=== PATIENT | female | born 1970 | race Caucasian/White ===

== ENCOUNTER → 2017-04-27 | Outpatient (CLI) | payer OTHER ==
--- NOTE | 2017-04-27 10:32 | WOMENS IMAGING REPORT ---
EXAM DESCRIPTION: BONE DENSITY HIP/SPINE COMPLETED DATE/TIME: 04/27/2017 9:02 am REASON FOR STUDY: M81.0 M81.0 AGE-RELATED OSTEOPOROSIS W/O CURRENT PATHOLOGICAL FRAC COMPARISON: 12/24/2012 TECHNIQUE: Dual-Energy X-ray Absorptiometry (DEXA) of the AP Spine and Hip. LIMITATIONS: None. FINDINGS: LUMBAR SPINE: The bone mineral density (BMD) measured from L1-L4 in the AP projection correlates with a T-score of -0.9, which is borderline osteopenic as defined by the World Health Organization. This represents a 10% decrease in bone density compared to 2013. HIP: The bone mineral density (BMD) measured in the left femoral neck at the hip correlates with a T-score of -0.6, which is still within normal limits as defined by the World Health Organization. However, this value represents a 14% decline in bone density compared to 2012 IMPRESSION: 1. LUMBAR SPINE: Borderline osteopenic 2. HIP: Normal COMMENT: The World Health Organization defines low BMD as follows: T-score: Normal: Greater than -1.0 Osteopenia: Between -1.0 and -2.5 Osteoporosis: Less than -2.5 without fractures Established osteoporosis: Less than -2.5 with fractures In general, you may wish to consider: Diagnosis Treatment Follow-up DEXA Normal BMD Prevention 2-3 years Osteopenia Prevention/Therapy 1-2 years Osteoporosis Therapy Yearly TECHNICAL DOCUMENTATION: JOB ID: [id number] [employer]- All Rights Reserved
== END ==
LOC: WI 09:11
PROVIDERS: ATTEND Family Medicine
DX: M81.0 Age-related osteoporosis without current pathological fracture (principal)
CPT/HCPCS: 77080

== ENCOUNTER → 2018-10-25 | Outpatient (CLI) | payer OTHER ==
--- NOTE | 2018-10-25 13:10 | RADIOLOGY REPORT (SQ) ---
EXAM DESCRIPTION: CHEST 2 VIEWS COMPLETED DATE/TIME: 10/25/2018 12:35 pm REASON FOR STUDY: SOB/COUGH COMPARISON: None. EXAM PARAMETERS: NUMBER OF VIEWS: two views TECHNIQUE: Digital Frontal and Lateral radiographic views of the chest acquired. RADIATION DOSE: NA LIMITATIONS: none FINDINGS: LUNGS AND PLEURA: Moderate right pleural effusion and associated airspace disease. MEDIASTINUM AND HILAR STRUCTURES: No masses or contour abnormalities. HEART AND VASCULAR STRUCTURES: Heart normal size. No evidence for failure. BONES: No acute findings. HARDWARE: Left mastectomy and axillary node dissection. OTHER: No other significant finding. IMPRESSION: Right lower lobe pneumonia. Follow-up to resolution is recommended. TECHNICAL DOCUMENTATION: JOB ID: [id number] [employer]- All Rights Reserved Reading location - IP/workstation name: [email or web address]
== END ==
LOC: RAD 12:12
PROVIDERS: ATTEND Hospitalist
DX: J18.9 Pneumonia, unspecified organism (principal); R06.02 Shortness of breath; R05 Cough
CPT/HCPCS: 71046

== ENCOUNTER 2018-12-23 08:00 | Day surgery (SDC) | payer OTHER ==
[~2018-12-23 08:00] MED LIST: CEFAZOLIN 1 GM/D5W RTU 1 GM/50 ML RTUPB IV ONE; CEFAZOLIN 1 GM/D5W RTU 1 GM/50 ML RTUPB IV PRN; DIAZEPAM 5 MG TABLET PO PRN; OXYCODONE-ACETAMINOPHEN 5-325 MG TABLET PO PRN
[2018-12-23] MEDS ORDERED: DIAZEPAM 5 MG TABLET ONE (08:46)
--- NOTE | 2018-12-23 09:19 | RADIOLOGY REPORT (SQ) ---
EXAM DESCRIPTION: CHEST SINGLE VIEW COMPLETED DATE/TIME: 12/23/2018 8:48 am REASON FOR STUDY: PREOP COMPARISON: 10/25/2018. EXAM PARAMETERS: NUMBER OF VIEWS: One view. TECHNIQUE: Single frontal radiographic view of the chest acquired. RADIATION DOSE: NA LIMITATIONS: None. FINDINGS: LUNGS AND PLEURA: Patchy basilar densities. Focal density in the medial right lower lobe. Moderate pleural effusions, right greater than left. MEDIASTINUM AND HILAR STRUCTURES: No masses. Contour normal. HEART AND VASCULAR STRUCTURES: Mild cardiomegaly. BONES: No acute findings. HARDWARE: Left mastectomy with surgical clips on the left. OTHER: No other significant finding. IMPRESSION: MODERATE BILATERAL PLEURAL EFFUSIONS, RIGHT GREATER THAN LEFT, WITH PATCHY BASILAR DENSI TIES. CANNOT EXCLUDE MASS OR INFILTRATE IN THE RIGHT LOWER LOBE. TECHNICAL DOCUMENTATION: JOB ID: [id number] 1941 [employer]- All Rights Reserved Reading location - IP/workstation name: [email or web address]
[2018-12-23 09:24] LABS: HEMOGLOBIN 13.3 g/dL (12.0-15.5); MEAN CORPUSCULAR HEMOGLOBIN 35.2 pg (27.0-33.4); MEAN CORPUSCULAR VOLUME 101 fl (80-97); PLATELET COUNT 370 10^3/uL (150-450); RED BLOOD COUNT 3.78 10^6/uL (3.72-5.28); RED CELL DISTRIBUTION WIDTH 19.2 % (11.5-14.0)
[2018-12-23] MEDS ORDERED: MIDAZOLAM 2 MG/2 ML INJ ONE (09:32)
[2018-12-23] MEDS ORDERED: LIDOCAINE 0.5% INJ-PF (5 MG/ML) 50 ML SDV ONE (09:32)
[2018-12-23] MEDS ORDERED: BACITRACIN INJ 50,000 UNIT VIAL ONE (09:33)
[2018-12-23] MEDS ORDERED: FENTANYL CITRATE INJ/PF 100 MCG/2 ML AMPUL ONE (09:33)
[2018-12-23 09:41] LABS: ANION GAP 9 (5-19); BLOOD UREA NITROGEN 8 mg/dL (7-20); CALCIUM 9.4 mg/dL (8.4-10.2); CARBON DIOXIDE 26 mmol/L (22-30); CHLORIDE 105 mmol/L (98-107); GLUCOSE 104 mg/dL (75-110); POTASSIUM 4.3 mmol/L (3.6-5.0); SODIUM 140.2 mmol/L (137-145)
--- NOTE | 2018-12-23 11:21 | Discharge Summary ---
Discharge Summary (SDC) - Discharge Final Diagnosis: #1 breast cancer. Date of Surgery: 12/23/18 Discharge Date: 12/23/18 Condition: Fair Forms: Sedation D/C Instructions, Discharge POC-Surgical Service Treatment or Instructions: Discharge home [after recovery per ASU criteria]. Diet ,as tolerated, when fully awake advance as tolerated. Activities within moderation encouraged. Follow up in my office by appointment in about [1 week]. Call for appointment. Leave wounds [covered], [keep clean and dry, until office visit in 1 week]. Hold of on school/work [until evaluation in office]. Meds per med rec. May shower [in 48 hrs], [try to keep operated area as dry as possible]. Referrals: SHARONDA CARVAJAL JR, MD [Primary Care Provider] - GARCIA EVANS MD [ACTIVE STAFF] - Discharge Diet: As Tolerated Respiratory Treatments at Home: Deep Breathing/Coughing Discharge Activity: Activity As Tolerated
--- NOTE | 2018-12-23 11:23 | Operative Report ---
Operative Report DATE OF SURGERY: 12/23/18 PREOPERATIVE DIAGNOSIS: #1 breast cancer. POSTOPERATIVE DIAGNOSIS: #1 breast cancer. OPERATION: 1. Ultrasound evaluation of the right internal jugular vein. 2. Insertion of Port-A-Cath via real-time access in the right internal jugular vein. 3. Angiogram and interpretation. SURGEON: GARCIA JAMA [employer] WORKER: None. ANESTHESIA: Moderate Sedation TISSUE REMOVED OR ALTERED: Not applicable. COMPLICATIONS: None. ESTIMATED BLOOD LOSS: 5 mL. INTRAOPERATIVE FINDINGS: Satisfactory right internal jugular vein estimated to be 1.2 cm in diameter. Satisfactory support for single lumen Port-A-Cath. Easy egress of blood and ingress of heparinized solution. Angiogram demonstrates smooth flow of contrast through the distal superior vena cava and right atrium. PROCEDURE: After obtaining informed consent, the patient was taken to the [facility] and positioned supine. The [right] neck and chest were prepared with chlorhexidine and draped out with sterile linen. After the " universal timeout", in which it was verified that the patient continued to receive antibiotic, the procedure commenced. A steriley sheathed ultrasound probe was used to evaluate the [right] internal jugular vein. Local anesthesia was infiltrated adjacent to the probe. Access into the [right] internal jugular vein was obtained using a micropuncture needle, followed by micropuncture wire and then a micropuncture catheter. This was followed by introduction of a 0.035 guidewire the tip of which was placed down into the inferior vena cava . The port sites was marked , locally anesthetized and incision made. Dissection now proceeded to the deep subcutaneous subcutaneous tissues so that a pocket for the port was made. Meticulous hemostasis was secured and the catheter was tunneled between the 2 incisions. Proximally, the catheter was now positioned using a peel-away sheath. Distally the catheter was tailored to an appropriate length and then mated to the port using the contained fixating device. The port was now placed in the pocket and the catheter optimally positioned. The port was accessed with a Anne needle and an angiogram done under digital subtraction. The findings as dictated. With adequate and satisfactory positioning, the lumen of the chamber were irrigated with heparinized solution. The wounds were now closed using interrupted 3-0 PDS to the subcutaneous tissues and a continuous subcuticular suture of 4-0 Monocryl to the skin. These are reinforced with Steri-Strips over benzoin and then dressings applied. Time: 0.1 minute. Dose: 6.39 m Gy Contrast: 5 Mls. Isovue 300. Copies of the dictated operative report for Dr. Garcia Garcia MD.
[2018-12-23 12:35] VITALS: BP 133/72
--- NOTE | 2018-12-23 13:03 | RADIOLOGY REPORT (SQ) ---
EXAM DESCRIPTION: PORTACATH INSERTION; GUIDANCE FLUOROSCOPIC COMPLETED DATE/TIME: 12/23/2018 11:02 am REASON FOR STUDY: C50.412 LT BREAST CA C50.412 MALIG NEOPLASM OF UPPER-OUTER QUADRANT OF LEFT FEMAL COMPARISON: None. FLUOROSCOPY TIME: 0.1 minutes 21 digital radiographic images saved to PACS. TECHNIQUE: Intra-operative images acquired during surgical procedure to evaluate progress. NUMBER OF IMAGES: 21 digital radiographic images saved to pac's LIMITATIONS: None. FINDINGS: Intra procedural imaging and fluoro during placement of a right-sided permanent central li ne with the tip in the superior vena cava. Please see the operative report for further details IMPRESSION: Intra procedural imaging and fluoro COMMENT: Quality ID [id number]: Final reports for procedures using fluoroscopy that document radiation exp osure indices, or exposure time and number of fluorographic images (if radiation exposure indices are not available) Please consult full operative report of the attending physician for description of the procedure. TECHNICAL DOCUMENTATION: JOB ID: [id number] [employer]- All Rights Reserved Reading location - IP/workstation name: [email or web address]
--- NOTE | 2018-12-23 13:03 | RADIOLOGY REPORT (SQ) ---
EXAM DESCRIPTION: PORTACATH INSERTION; GUIDANCE FLUOROSCOPIC COMPLETED DATE/TIME: 12/23/2018 11:02 am REASON FOR STUDY: C50.412 LT BREAST CA C50.412 MALIG NEOPLASM OF UPPER-OUTER QUADRANT OF LEFT FEMAL COMPARISON: None. FLUOROSCOPY TIME: 0.1 minutes 21 digital radiographic images saved to PACS. TECHNIQUE: Intra-operative images acquired during surgical procedure to evaluate progress. NUMBER OF IMAGES: 21 digital radiographic images saved to pac's LIMITATIONS: None. FINDINGS: Intra procedural imaging and fluoro during placement of a right-sided permanent central li ne with the tip in the superior vena cava. Please see the operative report for further details IMPRESSION: Intra procedural imaging and fluoro COMMENT: Quality ID [id number]: Final reports for procedures using fluoroscopy that document radiation exp osure indices, or exposure time and number of fluorographic images (if radiation exposure indices are not available) Please consult full operative report of the attending physician for description of the procedure. TECHNICAL DOCUMENTATION: JOB ID: [id number] [employer]- All Rights Reserved Reading location - IP/workstation name: [email or web address]
== END 2018-12-23 12:20 | disposition home or self-care (01) ==
LOC: CCL 08:00
PROVIDERS: ATTEND Surgery
DX: C50.412 Malignant neoplasm of upper-outer quadrant of left female breast (principal); E03.9 Hypothyroidism, unspecified; Z85.3 Personal history of malignant neoplasm of breast; C79.9 Secondary malignant neoplasm of unspecified site; Z79.51 Long term (current) use of inhaled steroids; Z87.891 Personal history of nicotine dependence; Z79.899 Other long term (current) drug therapy; Z01.818 Encounter for other preprocedural examination
CPT/HCPCS: 36415; 85027; 80048; 36561; 76937; 77001; 71045; C1752; C1788; J2250; J3490 ×2; J0690; J3010; J1644

== ENCOUNTER 2019-01-05 15:48 | Inpatient (IN) | payer OTHER ==
[2019-01-05 16:45] LABS: ABSOLUTE BASOPHILS # (AUTO) 0.1 10^3/uL (0.0-0.2); ABSOLUTE EOSINOPHILS # (AUTO) 0.3 10^3/uL (0.0-0.6); ABSOLUTE NEUT (AUTO) 4.1 10^3/uL (1.7-8.2); EOSINOPHILS % (AUTO) 5.7 % (0-6); HEMATOCRIT 36.9 % (36.0-47.0); HEMOGLOBIN 12.6 g/dL (12.0-15.5); LYMPHOCYTES % (AUTO) 18.3 % (13-45); MEAN CORPUSCULAR HEMOGLOBIN 34.6 pg (27.0-33.4); MEAN CORPUSCULAR HGB CONC 34.2 g/dL (32.0-36.0); MEAN CORPUSCULAR VOLUME 101 fl (80-97); MONOCYTES % (AUTO) 0.8 % (3-13); PLATELET COUNT 418 10^3/uL (150-450); RED BLOOD COUNT 3.64 10^6/uL (3.72-5.28); RED CELL DISTRIBUTION WIDTH 16.6 % (11.5-14.0); SEGMENTED NEUTROPHILS % (AUTO) 74.2 % (42-78); TOTAL CELLS COUNTED % (AUTO) 100 %; WHITE BLOOD COUNT 5.5 10^3/uL (4.0-10.5)
[2019-01-05 16:52] LABS: INTERNATIONAL RATION (INR) 1.07; PROTHROMBIN TIME 14.4 SEC (11.4-15.4)
[2019-01-05 16:53] LABS: PARTIAL THROMBOPLASTIN TIME 44.3 SEC (23.5-35.8)
[2019-01-05 16:55] LABS: ALANINE AMINOTRANSFERASE 28 U/L (9-52); ALBUMIN 3.9 g/dL (3.5-5.0); ALKALINE PHOSPHATASE 101 U/L (38-126); ANION GAP 10 (5-19); ASPARTATE AMINO TRANSFERASE 46 U/L (14-36); BILIRUBIN,DIRECT 0.3 mg/dL (0.0-0.4); BILIRUBIN,TOTAL 0.4 mg/dL (0.2-1.3); BLOOD UREA NITROGEN 4 mg/dL (7-20); CARBON DIOXIDE 28 mmol/L (22-30); CHLORIDE 100 mmol/L (98-107); GLUCOSE 101 mg/dL (75-110); POTASSIUM 3.5 mmol/L (3.6-5.0); SODIUM 137.7 mmol/L (137-145)
--- NOTE | 2019-01-05 18:15 | RADIOLOGY REPORT (SQ) ---
EXAM DESCRIPTION: CHEST 2 VIEWS COMPLETED DATE/TIME: 01/05/2019 5:21 pm REASON FOR STUDY: Hymopthysis COMPARISON: 10/25/2018. 12/23/2018. EXAM PARAMETERS: NUMBER OF VIEWS: two views TECHNIQUE: Digital Frontal and Lateral radiographic views of the chest acquired. RADIATION DOSE: NA LIMITATIONS: none FINDINGS: LUNGS AND PLEURA: There is again evidence of a masslike infiltrate right cardiophrenic ang le with right pleural effusion. Persistent left pleural effusion and left basilar infiltrate. . MEDIASTINUM AND HILAR STRUCTURES: No masses or contour abnormalities. HEART AND VASCULAR STRUCTURES: The heart remains unchanged in size. The pulmonary vasculature is nor mal. BONES: No acute findings. HARDWARE: Surgical clips left axilla and left chest wall. . OTHER: Interval placement of right trans venous Port-A-Cath with tip at distal SVC. Changes compatib le with left mastectomy. IMPRESSION: Persistent masslike infiltrate right cardiophrenic angle. Left basilar infiltrate. Arsen ateral pleural effusions right greater than left. Consider CT of the chest with contrast as further evaluation if indicated. COMMENT: The findings were discussed with the ER physician taking care the patient. TECHNICAL DOCUMENTATION: JOB ID: [id number] [employer]- All Rights Reserved Reading location - IP/workstation name: [email or web address]
[2019-01-05] MEDS ORDERED: IPRATROPIUM/ALBUTEROL 0.5-2.5 MG/3 ML AMPUL NEB ONE (20:02)
--- NOTE | 2019-01-05 20:03 | RADIOLOGY REPORT (SQ) ---
EXAM DESCRIPTION: CT CHEST WITH IV CONTRAST COMPLETED DATE/TME: 01/05/2019 18:17 CLINICAL HISTORY: 48 years, Female, Hemoptysis, Lung mass This exam was performed according to our departmental dose-optimization program which includes automated exposure control, adjustment of the mA and/or kVp according to patient size and/or use of iterative reconstruction technique where applicable. FINDINGS: Aorta is mildly calcified without aneurysm. Pulmonary arteries are well opacified. Mild layering bilateral pleural effusions. Right lower lobe consolidation is noted. Multiple right lung pleural-based nodules. These findings are suspicious for malignancy. Right chest port is noted. IMPRESSION: Findings suspicious for malignancy. Mild layering bilateral pleural effusions. Correlate with prior imaging studies.
[2019-01-05] MEDS ORDERED: VANCOMYCIN HCL INJ 1000 MG VIAL IV ONE (20:41)
[2019-01-05] MEDS ORDERED: CEFEPIME 2 GM/D5W RTU 2 GM/50 ML RTUPB IV ONE (20:41)
[2019-01-05 21:19] LABS: APPEARANCE,URINE CLEAR; BILIRUBIN,URINE NEGATIVE (NEGATIVE); COLOR,URINE STRAW; GLUCOSE, URINE NEGATIVE (NEGATIVE); KETONES,URINE NEGATIVE (NEGATIVE); LEUKOCYTE ESTERASE,URINE NEGATIVE (NEGATIVE); NITRITE,URINE NEGATIVE (NEGATIVE); PROTEIN,URINE NEGATIVE (NEGATIVE); URINE SPECIFIC GRAVITY 1.035; UROBILINOGEN,URINE NEGATIVE mg/dL (<2.0)
--- NOTE | 2019-01-05 21:25 | ER Document Report ---
ED General - General Chief Complaint: Vomiting Stated Complaint: SPITTING UP BLOOD Primary Care Provider: SHARONDA CARVAJAL JR, MD [Primary Care Provider] - Follow up as needed Information source: Patient, Relative TRAVEL OUTSIDE OF THE [place] IN LAST 30 DAYS: No - HPI Onset: Other - 3-4 days. Onset/Duration: Sudden Quality of pain: No pain Severity: None Pain Level: Denies Associated symptoms: None, Productive cough - Hemoptysis Exacerbated by: Denies Relieved by: Denies Similar symptoms previously: No Recently seen / treated by doctor: No - Related Data Allergies/Adverse Reactions: No Known Allergies Allergy (Verified 12/23/18 08:12) Past Medical History - Social History Smoking Status: Current Every Day Smoker Chew tobacco use (# tins/day): No Frequency of alcohol use: None Drug Abuse: None Family History: Reviewed & Not Pertinent Patient has suicidal ideation: No Patient has homicidal ideation: No - Past Medical History Cardiac Medical History: Denies: Hx Coronary Artery Disease, Hx Heart Attack, Hx Hypertension Pulmonary Medical History: Denies: Hx Asthma, Hx Bronchitis - X1, Hx COPD, Hx Pneumonia Neurological Medical History: Denies: Hx Cerebrovascular Accident, Hx Seizures Renal/ Medical History: Denies: Hx Peritoneal Dialysis Musculoskeletal Medical History: Denies Hx Arthritis Past Surgical History: Reports: Hx Breast Surgery - left mastectomy, Hx Section - Immunizations Hx Diphtheria, Pertussis, Tetanus Vaccination: No Review of Systems - Review of Systems Constitutional: No symptoms reported EENT: No symptoms reported Cardiovascular: No symptoms reported Respiratory: Cough, Hemoptysis, Short of breath Gastrointestinal: No symptoms reported Genitourinary: No symptoms reported Female Genitourinary: No symptoms reported Musculoskeletal: No symptoms reported Skin: No symptoms reported Hematologic/Lymphatic: No symptoms reported Neurological/Psychological: No symptoms reported -: Yes All other systems reviewed and negative Physical Exam - Vital signs Vitals: Temp Pulse Resp BP Pulse Ox 98.6 F 76 18 157/67 H 92 01/05/19 16:04 01/05/19 16:04 01/05/19 16:04 01/05/19 16:04 01/05/19 16:04 Interpretation: Normal - General General appearance: Appears well, Alert - HEENT Head: Normocephalic, Atraumatic Eyes: Normal Pupils: PERRL - Respiratory Respiratory status: No respiratory distress Chest status: Nontender Breath sounds: Normal Chest palpation: Normal - Cardiovascular Rhythm: Regular Heart sounds: Normal auscultation Murmur: No - Abdominal Inspection: Normal Distension: No distension Bowel sounds: Normal Tenderness: Nontender Organomegaly: No organomegaly - Back Back: Normal, Nontender - Extremities General upper extremity: Normal inspection, Nontender, Normal color, Normal ROM, Normal temperature General lower extremity: Normal inspection, Nontender, Normal color, Normal ROM, Normal temperature, Normal weight bearing. No: Ladarius's sign - Neurological Neuro grossly intact: Yes Cognition: Normal Orientation: AAOx4 Tripp Coma Scale Eye Opening: Spontaneous Camino Coma Scale Verbal: Oriented Tripp Coma Scale Motor: Obeys Commands Tripp Coma Scale Total: 15 Speech: Normal Motor strength normal: LUE, RUE, LLE, RLE Sensory: Normal - Psychological Associated symptoms: Normal affect, Normal mood - Skin Skin Temperature: Warm Skin Moisture: Dry Skin Color: Normal Course - Vital Signs Vital signs: Temp Pulse Resp BP Pulse Ox 98.6 F 76 17 157/67 H 98 01/05/19 16:04 01/05/19 16:04 01/05/19 20:00 01/05/19 16:04 01/05/19 20:00 - Laboratory Result Diagrams: 01/05/19 16:20 01/05/19 16:20 Laboratory results interpreted by me: 01/05/19 01/05/19 01/05/19 16:20 16:20 16:20 RBC 3.64 L MCV 101 H MCH 34.6 H RDW 16.6 H Monocytes % 0.8 L Absolute Monocytes 0.0 L APTT 44.3 H Potassium 3.5 L BUN 4 L AST 46 H - Diagnostic Test Radiology reviewed: Reports reviewed - Consults Dr Mcginnis Time consulted: 20:50 Consulted provider: will see as inpatient - Transfer of Care Notes: 01/05/19 21:23 Patient will be admitted by the hospitalist Dr. Shamir Dacosta for further management. Discharge - Discharge Clinical Impression: Hemoptysis Right lower lobe pneumonia Qualifiers: Pneumonia type: due to unspecified organism Qualified Code(s): J18.1 - Lobar pneumonia, unspecified organism Breast cancer Qualifiers: Breast location: unspecified site of breast Estrogen receptor status: unspecified Patient sex: female Laterality: unspecified laterality Qualified Code(s): C50.919 - Malignant neoplasm of unspecified site of unspecified female breast Condition: Stable Disposition: ADMITTED INPATIENT Admitting Provider: Hospitalist Unit Admitted: Telemetry Referrals: SHARONDA CARVAJAL JR, MD [Primary Care Provider] - Follow up as needed
[2019-01-05] MEDS ORDERED: KETOROLAC TROMETHAMINE INJ/PF 30 MG/1 ML SDV IV PRN (21:34)
[2019-01-05] MEDS ORDERED: VANCOMYCIN HCL INJ 1000 MG VIAL IV PRN (21:57)
[2019-01-05] MEDS ORDERED: VANCOMYCIN HCL 0 MG in DEXTROSE 5%-WATER 250 ML IV NR (22:00)
[2019-01-05] MEDS ORDERED: CEFEPIME 2 GM/D5W RTU 2 GM/50 ML RTUPB IV SCH (22:00)
[2019-01-05] MEDS ORDERED: VANCOMYCIN HCL 750 MG in DEXTROSE 5%-WATER 250 ML IV ONE (23:00)
[2019-01-06] MEDS: OXYCODONE HCL SR 40 MG TABLET PO SCH ×3 (00:02→21:43)
[2019-01-06] MEDS: IPRATROPIUM/ALBUTEROL 0.5-2.5 MG/3 ML AMPUL NEB SCH ×4 (00:12→23:29)
[2019-01-06] MEDS: OXYCODONE HCL IR 5 MG TABLET PO SCH ×5 (01:24→14:29)
[2019-01-06] MEDS: CHLORPHENIRAMINE MALEATE 4 MG TABLET PO SCH ×4 (01:24→10:24)
[2019-01-06] MEDS: HEPARIN SOD (PORCINE) 5,000 UNIT/ML 1 ML SYRINGE SUBCUT SCH ×4 (01:24→21:43)
[2019-01-06] MEDS: NORMAL SALINE 1000 ML 1,000 ML IV PRN ×2 (01:49→07:53)
[2019-01-06] MEDS ORDERED: FLUTICASONE NASAL SPRAY 50 MCG/SPRY 120 SPRAY/16 GM ONE (01:57)
[2019-01-06] MEDS ORDERED: PROMETHAZINE HCL 25 MG TABLET PO SCH (02:00)
[2019-01-06] MEDS: FLUTICASONE NASAL SPRAY 50 MCG/SPRY 120 SPRAY/16 GM NASL SCH ×3 (02:00→21:43)
[2019-01-06] MEDS ORDERED: PROMETHAZINE HCL 25 MG TABLET PO PRN (02:30)
--- NOTE | 2019-01-06 05:09 | PDOC H&P ---
History of Present Illness Admission Date/PCP: 01/05/19 21:30 SHARONDA CARVAJAL JR, MD Patient complains of: Rhinorrhea and shortness of breath History of Present Illness: VIJAYA HUTTON is a 48 year old female with a past medical history of recurrent stage IV breast cancer with widespread metastasis to lung, chronic left maxillary sinusitis, COPD and tobacco dependence. She presents with 72 hours of worsening rhinorrhea, postnasal drip, shortness of breath and productive cough with purulent material and blood. Quantifying the blood to be approximately a tablespoon occurring approximately a dozen times over the last 12 hours. In the emergency room she has hypoxia, tachypnea, leukocytosis and a chest CT showing bilateral infiltrate worse on the right, with layering pleural effusion. Patient denies recent antibiotic use and complains of generalized pain and fatigue. Patient verifies her CODE STATUS to be full code Past Medical History Cardiac Medical History: Denies: Coronary Artery Disease, Myocardial Infarction, Hypertension Pulmonary Medical History: Reports: Bronchitis - X1, Chronic Obstructive Pulmonary Disease (COPD), Pneumonia Denies: Asthma EENT Medical History: Reports: Other - Left maxillary sinusitis Neurological Medical History: Reports: None Denies: Seizures Endocrine Medical History: Reports: None Renal/ Medical History: Reports: None Malignancy Medical History: Reports: Bone Cancer, Breast Cancer, Lung Cancer GI Medical History: Reports: None Musculoskeltal Medical History: Denies: Arthritis Skin Medical History: Reports: None Psychiatric Medical History: Reports: Tobacco Dependency Traumatic Medical History: Reports: None Hematology: Denies: Anemia Infectious Medical History: Reports: None Past Surgical History Past Surgical History: Reports: Section, Mastectomy Social History Information Source: Patient, [facility] Records Lives with: Family Smoking Status: Current Every Day Smoker Cigarettes Packs Per Day: 1 Frequency of Alcohol Use: None Drugs: None - Advance Directive Resuscitation Status: Full Code Family History Family History: COPD Parental Family History Reviewed: Yes Children Family History Reviewed: Yes Sibling(s) Family History Reviewed.: Yes Medication/Allergy Home Medications: Ibuprofen [Motrin 600 mg Tablet] 600 mg PO PRN PRN 12/20/18 Oxycodone HCl [Oxycodone HCl 10 MG Tablet] 10 mg PO Q4H 12/20/18 Oxycodone HCl [Oxycontin Sr 40 mg Tablet] 40 mg PO Q12 12/20/18 Thyroid (Pork) [[place] Thyroid 60 mg Tablet] 1 gr PO DAILY 12/20/18 Allergies/Adverse Reactions: No Known Allergies Allergy (Verified 12/23/18 08:12) Review of Systems Constitutional: PRESENT: as per HPI, anorexia, fatigue, night sweats, weakness, weight loss Eyes: ABSENT: visual disturbances Ears: ABSENT: hearing changes Nose, Mouth, and Throat: PRESENT: other - Left maxillary with rhinorrhea Cardiovascular: ABSENT: chest pain, dyspnea on exertion, edema, orthropnea, pal pitations Respiratory: PRESENT: as per HPI, cough, dyspnea, hemoptysis, sputum Gastrointestinal: ABSENT: abdominal pain, constipation, diarrhea, hematemesis, hematochezia, nausea, vomiting Genitourinary: ABSENT: dysuria, hematuria Musculoskeletal: ABSENT: joint swelling Integumentary: ABSENT: rash, wounds Neurological: ABSENT: abnormal gait, abnormal speech, confusion, dizziness, focal weakness, syncope Psychiatric: PRESENT: anxiety. ABSENT: depression, homidical ideation, suicidal ideation Endocrine: ABSENT: cold intolerance, heat intolerance, polydipsia, polyuria Hematologic/Lymphatic: ABSENT: easy bleeding, easy bruising Physical Exam Vital Signs: Temp Pulse Resp BP Pulse Ox 98.2 F 86 18 151/72 H 97 01/06/19 03:41 01/06/19 03:41 01/06/19 03:41 01/06/19 03:41 01/06/19 03:41 Intake & Output 01/04/19 01/05/19 01/06/19 10:59 11:59 11:59 Intake Total 50 Balance 50 Weight 49.2 kg General appearance: PRESENT: cooperative, mild distress, thin, other - Chronically ill-appearing with temporal wasting Head exam: PRESENT: atraumatic, normocephalic Eye exam: PRESENT: conjunctiva pink, EOMI, PERRLA. ABSENT: scleral icterus Ear exam: PRESENT: normal external ear exam Mouth exam: PRESENT: moist, tongue midline Neck exam: ABSENT: carotid bruit, JVD, lymphadenopathy, thyromegaly Respiratory exam: PRESENT: accessory muscle use, crackles, decreased breath sounds, prolonged expiratory phas, retraction, rhonchi, tachypnea. ABSENT: symmetrical Cardiovascular exam: PRESENT: RRR. ABSENT: diastolic murmur, rubs, systolic murmur Pulses: PRESENT: normal dorsalis pedis pul Vascular exam: PRESENT: normal capillary refill GI/Abdominal exam: PRESENT: normal bowel sounds, soft. ABSENT: distended, guarding, mass, organolmegaly, rebound, tenderness Rectal exam: PRESENT: deferred Extremities exam: PRESENT: full ROM. ABSENT: calf tenderness, clubbing, pedal edema Neurological exam: PRESENT: alert, awake, oriented to person, oriented to place, oriented to time, oriented to situation, CN II-XII grossly intact. ABSENT: motor sensory deficit Psychiatric exam: PRESENT: appropriate affect, normal mood. ABSENT: homicidal ideation, suicidal ideation Skin exam: PRESENT: dry, intact, warm. ABSENT: cyanosis, rash Results Laboratory Results: 01/05/19 16:20 01/05/19 16:20 01/05/19 01/05/19 01/05/19 16:20 16:20 16:20 WBC 5.5 RBC 3.64 L Hgb 12.6 Hct 36.9 MCV 101 H MCH 34.6 H MCHC 34.2 RDW 16.6 H Plt Count 418 Seg Neutrophils % 74.2 Lymphocytes % 18.3 Monocytes % 0.8 L Eosinophils % 5.7 Basophils % 1.0 Absolute Neutrophils 4.1 Absolute Lymphocytes 1.0 Absolute Monocytes 0.0 L Absolute Eosinophils 0.3 Absolute Basophils 0.1 Sodium 137.7 Potassium 3.5 L Chloride 100 Carbon Dioxide 28 Anion Gap 10 BUN 4 L Creatinine 0.55 Est GFR ( Amer) > 60 Est GFR (Non-Af Amer) > 60 Glucose 101 Calcium 9.0 Magnesium 2.0 Total Bilirubin 0.4 AST 46 H ALT 28 Alkaline Phosphatase 101 Total Protein 7.0 Albumin 3.9 Urine Color Urine Appearance Urine pH Ur Specific [place] Urine Protein Urine Glucose (UA) Urine Ketones Urine Blood Urine Nitrite Ur Leukocyte Esterase Urine WBC (Auto) 01/05/19 20:10 WBC RBC Hgb Hct MCV MCH MCHC RDW Plt Count Seg Neutrophils % Lymphocytes % Monocytes % Eosinophils % Basophils % Absolute Neutrophils Absolute Lymphocytes Absolute Monocytes Absolute Eosinophils Absolute Basophils Sodium Potassium Chloride Carbon Dioxide Anion Gap BUN Creatinine Est GFR ( Amer) Est GFR (Non-Af Amer) Glucose Calcium Magnesium Total Bilirubin AST ALT Alkaline Phosphatase Total Protein Albumin Urine Color STRAW Urine Appearance CLEAR Urine pH 7.0 Ur Specific [place] 1.035 Urine Protein NEGATIVE Urine Glucose (UA) NEGATIVE Urine Ketones NEGATIVE Urine Blood NEGATIVE Urine Nitrite NEGATIVE Ur Leukocyte Esterase NEGATIVE Urine WBC (Auto) 1 Impressions: Chest X-Ray 01/05/19 16:37 IMPRESSION: Persistent masslike infiltrate right cardiophrenic angle. Left basilar infiltrate. Bilateral pleural effusions right greater than left. Consider CT of the chest with contrast as further evaluation if indicated. Chest CT 01/05/19 18:17 IMPRESSION: Findings suspicious for malignancy. Mild layering bilateral pleural effusions. Correlate with prior imaging studies. Assessment & Plan - Diagnosis (1) Right lower lobe pneumonia Qualifiers: Pneumonia type: due to unspecified organism Qualified Code(s): J18.1 - Lobar pneumonia, unspecified organism Is this a current diagnosis for this admission?: Yes Plan: Complicated by breast cancer with metastases to lung and pleural effusions. Pneumonia care set, incentive spirometry, supplemental oxygen incentive spirometry, empiric antibiotics. Follow-up CBC, blood and sputum culture. (2) Maxillary sinusitis, acute Is this a current diagnosis for this admission?: Yes Plan: Flonase, chlorpheniramine, empiric antibiotics. Follow-up CBC and consider ENT if felt to be source of bleeding. (3) Breast cancer Qualifiers: Breast location: unspecified site of breast Estrogen receptor status: unspecified Patient sex: female Laterality: unspecified laterality Qualified Code(s): C50.919 - Malignant neoplasm of unspecified site of unspecified female breast Is this a current diagnosis for this admission?: Yes Plan: Oncology consult (4) Hemoptysis Is this a current diagnosis for this admission?: Yes Plan: Pulmonology consult, consider ENT. - Time Time Spent: 50 to 70 Minutes - Inpatient Certification Medical Necessity: Need Close Monitoring Due to Risk of Patient Decompensation
[2019-01-06 06:22] LABS: ABSOLUTE BASOPHILS # (AUTO) 0.1 10^3/uL (0.0-0.2); ABSOLUTE EOSINOPHILS # (AUTO) 0.3 10^3/uL (0.0-0.6); ABSOLUTE LYMPHOCYTES (AUTO) 0.9 10^3/uL (0.5-4.7); ABSOLUTE NEUT (AUTO) 3.1 10^3/uL (1.7-8.2); BASOPHILS % (AUTO) 1.3 % (0-2); EOSINOPHILS % (AUTO) 7.3 % (0-6); HEMATOCRIT 34.5 % (36.0-47.0); HEMOGLOBIN 11.8 g/dL (12.0-15.5); LYMPHOCYTES % (AUTO) 20.2 % (13-45); MEAN CORPUSCULAR HEMOGLOBIN 34.7 pg (27.0-33.4); MEAN CORPUSCULAR HGB CONC 34.4 g/dL (32.0-36.0); MEAN CORPUSCULAR VOLUME 101 fl (80-97); MONOCYTES % (AUTO) 0.9 % (3-13); PLATELET COUNT 367 10^3/uL (150-450); RED BLOOD COUNT 3.41 10^6/uL (3.72-5.28); RED CELL DISTRIBUTION WIDTH 17.2 % (11.5-14.0); SEGMENTED NEUTROPHILS % (AUTO) 70.3 % (42-78); TOTAL CELLS COUNTED % (AUTO) 100 %; WHITE BLOOD COUNT 4.3 10^3/uL (4.0-10.5)
[2019-01-06] MEDS: IPRATROPIUM/ALBUTEROL 0.5-2.5 MG/3 ML AMPUL NEB PRN ×2 (06:22→14:33)
[2019-01-06 06:34] LABS: ANION GAP 8 (5-19); BLOOD UREA NITROGEN 3 mg/dL (7-20); CALCIUM 8.8 mg/dL (8.4-10.2); CARBON DIOXIDE 26 mmol/L (22-30); CHLORIDE 104 mmol/L (98-107); GLUCOSE 74 mg/dL (75-110); POTASSIUM 3.8 mmol/L (3.6-5.0)
--- NOTE | 2019-01-06 07:04 | EKG REPORT ---
SEVERITY:- ABNORMAL ECG - SINUS RHYTHM LEFT BUNDLE BRANCH BLOCK : Confirmed by: Richard Anthony MD 06-Jan-2019 07:03:54
[2019-01-06] MEDS ORDERED: THYROID (PORK) 60 MG TABLET PO SCH (10:00)
--- NOTE | 2019-01-06 10:04 | PDOC CONSULTATION ---
Consultation Consult Date: 01/06/19 Consult reason:: Hematology/Oncology consultation was requested for patient with Stage IV breast cancer who was admitted for hemoptysis. History of Present Illness Admission Date/PCP: 01/05/19 21:30 SHARONDA CARVAJAL JR, MD History of Present Illness: VIJAYA HUTTON is a 48 year old female who was originally diagnosed with breast cancer in 2009, was treated (unknown location) and states that she was in remission until Aug 2018 when she developed a cough and thought she had pneumonia. She was treated in [place] and found to have a pleural effusion and pneumonia. 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 [id number] consistent with breast primary. She was starte don Xeloda oral chemotherapy, but was found to have progression on this medication, so was changed to Gemzar/Carboplatin. She received Cycle #1Day#1 of this chemo on 01/01/2019 and is due for Day 8 of cycle 1 on 01/08/2019. Today, she states that she started having sudden hemoptysis 2 days ago, just after the chemotherapy. She has never had anything like this before. She remains quite concerned today. No other issues voiced. She states that it was only in her sputum, but seemed like a moderate amount. Past Medical History Cardiac Medical History: Denies: Coronary Artery Disease, Myocardial Infarction, Hypertension Pulmonary Medical History: Reports: Bronchitis - X1, Chronic Obstructive Pulm onary Disease (COPD), Pneumonia Denies: Asthma EENT Medical History: Reports: Other - Left maxillary sinusitis Neurological Medical History: Reports: None Denies: Seizures Endocrine Medical History: Reports: Hypothyroidism Renal/ Medical History: Reports: None Malignancy Medical History: Reports: Breast Cancer - with mets to lung and bone GI Medical History: Reports: None Musculoskeltal Medical History: Denies: Arthritis Skin Medical History: Reports: None Psychiatric Medical History: Reports: Tobacco Dependency Traumatic Medical History: Reports: None Hematology: Reports: Other - Left maxillary sinusitis Denies: Anemia Infectious Medical History: Reports: None Past Surgical History Past Surgical History: Reports: Section, Mastectomy Social History Lives with: Family Smoking Status: Current Every Day Smoker Cigarettes Packs Per Day: 1 Frequency of Alcohol Use: None Drugs: None - Advance Directive Resuscitation Status: Full Code Family History Family History: COPD Parental Family History Reviewed: Yes - Mother with heart issues. Children Family History Reviewed: No Sibling(s) Family History Reviewed.: Yes Medication/Allergy Home Medications: Ibuprofen [Motrin 600 mg Tablet] 600 mg PO Q4HP PRN 12/20/18 Oxycodone HCl [Oxycodone HCl 10 MG Tablet] 10 mg PO Q4HP PRN 12/20/18 Albuterol Sulfate [Ventolin 0.083% Neb 2.5 mg/3 mL Ampul] 3 ml IH RTQ4HP PRN 01/06/19 Ondansetron HCl [Zofran 8 mg Tablet] 8 mg PO Q6HP PRN 01/06/19 Oxycodone HCl [Oxycontin] 20 mg PO Q12H 01/06/19 Thyroid 1 gr PO DAILY 01/06/19 Allergies/Adverse Reactions: No Known Allergies Allergy (Verified 12/23/18 08:12) Review of Systems Constitutional: ABSENT: fever(s), headache(s) Eyes: ABSENT: visual disturbances Ears: ABSENT: hearing changes Nose, Mouth, and Throat: ABSENT: sore throat Cardiovascular: ABSENT: chest pain Respiratory: PRESENT: hemoptysis Gastrointestinal: PRESENT: constipation. ABSENT: vomiting Musculoskeletal: PRESENT: back pain Integumentary: ABSENT: rash Neurological: ABSENT: dizziness Hematologic/Lymphatic: ABSENT: easy bleeding Physical Exam Vital Signs: Temp Pulse Resp BP Pulse Ox 98.3 F 56 L 16 156/65 H 93 01/06/19 08:00 01/06/19 08:00 01/06/19 08:00 01/06/19 08:00 01/06/19 08:00 Intake & Output 01/05/19 01/06/19 01/07/19 06:59 06:59 06:59 Intake Total 2319 Balance 2319 Weight 49.2 kg General appearance: PRESENT: well-developed, well-nourished Exam: 48 year old female. is at bedside. Head exam: PRESENT: normocephalic Eye exam: PRESENT: EOMI Mouth exam: PRESENT: tongue midline Neck exam: ABSENT: lymphadenopathy, tenderness Respiratory exam: PRESENT: clear to auscultation loki, unlabored Cardiovascular exam: PRESENT: RRR GI/Abdominal exam: PRESENT: soft, tenderness - Right upper quadrant.. ABSENT: organolmegaly Extremities exam: ABSENT: pedal edema Musculoskeletal exam: PRESENT: normal inspection Neurological exam: PRESENT: alert, awake Psychiatric exam: PRESENT: appropriate affect Skin exam: PRESENT: normal color Results Laboratory Results: 01/06/19 05:55 01/06/19 05:55 01/05/19 01/05/19 01/05/19 16:20 16:20 16:20 WBC 5.5 RBC 3.64 L Hgb 12.6 Hct 36.9 MCV 101 H MCH 34.6 H MCHC 34.2 RDW 16.6 H Plt Count 418 Seg Neutrophils % 74.2 Lymphocytes % 18.3 Monocytes % 0.8 L Eosinophils % 5.7 Basophils % 1.0 Absolute Neutrophils 4.1 Absolute Lymphocytes 1.0 Absolute Monocytes 0.0 L Absolute Eosinophils 0.3 Absolute Basophils 0.1 Sodium 137.7 Potassium 3.5 L Chloride 100 Carbon Dioxide 28 Anion Gap 10 BUN 4 L Creatinine 0.55 Est GFR ( Amer) > 60 Est GFR (Non-Af Amer) > 60 Glucose 101 Calcium 9.0 Magnesium 2.0 Total Bilirubin 0.4 AST 46 H ALT 28 Alkaline Phosphatase 101 Total Protein 7.0 Albumin 3.9 Urine Color Urine Appearance Urine pH Ur Specific [place] Urine Protein Urine Glucose (UA) Urine Ketones Urine Blood Urine Nitrite Ur Leukocyte Esterase Urine WBC (Auto) 01/05/19 01/06/19 01/06/19 20:10 05:55 05:55 WBC 4.3 RBC 3.41 L Hgb 11.8 L Hct 34.5 L MCV 101 H MCH 34.7 H MCHC 34.4 RDW 17.2 H Plt Count 367 Seg Neutrophils % 70.3 Lymphocytes % 20.2 Monocytes % 0.9 L Eosinophils % 7.3 H Basophils % 1.3 Absolute Neutrophils 3.1 Absolute Lymphocytes 0.9 Absolute Monocytes 0.0 L Absolute Eosinophils 0.3 Absolute Basophils 0.1 Sodium 138.0 Potassium 3.8 Chloride 104 Carbon Dioxide 26 Anion Gap 8 BUN 3 L Creatinine 0.54 Est GFR ( Amer) > 60 Est GFR (Non-Af Amer) > 60 Glucose 74 L Calcium 8.8 Magnesium Total Bilirubin AST ALT Alkaline Phosphatase Total Protein Albumin Urine Color STRAW Urine Appearance CLEAR Urine pH 7.0 Ur Specific [place] 1.035 Urine Protein NEGATIVE Urine Glucose (UA) NEGATIVE Urine Ketones NEGATIVE Urine Blood NEGATIVE Urine Nitrite NEGATIVE Ur Leukocyte Esterase NEGATIVE Urine WBC (Auto) 1 Impressions: Chest X-Ray 01/05/19 16:37 IMPRESSION: Persistent masslike infiltrate right cardiophrenic angle. Left basilar infiltrate. Bilateral pleural effusions right greater than left. Consider CT of the chest with contrast as further evaluation if indicated. Chest CT 01/05/19 18:17 IMPRESSION: Findings suspicious for malignancy. Mild layering bilateral pleural effusions. Correlate with prior imaging studies. Status: Image reviewed by me Assessment & Plan - Diagnosis (1) Breast cancer Qualifiers: Breast location: unspecified site of breast Estrogen receptor status: unspecified Patient sex: female Laterality: unspecified laterality Qualified Code(s): C50.919 - Malignant neoplasm of unspecified site of unspecified female breast Is this a current diagnosis for this admission?: Yes Plan: She is due for chemo again on 01/08/2019. Hopefully, she will be able to be discharged in time to have this chemo as outpatient. (2) Hemoptysis Is this a current diagnosis for this admission?: Yes Plan: Although this could be due to acute infection, clinically, she has no other signs of infection. Await cultures, but if negative, would presume that the hemoptysis is due to the cancer. She understands that she needs to continue the chemo in order to have any chance of this improving. As long as HGB remains stable, would follow as outpatient. She will have repeat CBC in the office again on 01/08/19. (3) Pain Is this a current diagnosis for this admission?: Yes Plan: Secondary to cancer. I will continue her home dose of pain medications without change. She is taking Miralax daily as well for opioid induced constipation. She will continue.
[2019-01-06] MEDS: PSYLLIUM SEED-SF 5.85 GM PACKET PO SCH (10:24)
[2019-01-06] MEDS: THYROID (PORK) 60 MG TABLET PO SCH (10:25)
[2019-01-06] MEDS: CEFEPIME 2 GM/D5W RTU 2 GM/50 ML RTUPB IV SCH ×2 (10:26→21:45)
[2019-01-06] MEDS: NICOTINE 7 MG/24 HR PATCH.TD24 TD SCH (10:26)
[2019-01-06] MEDS: VANCOMYCIN HCL 500 MG in DEXTROSE 5%-WATER 100 ML IV SCH ×2 (11:45→17:43)
[2019-01-06] MEDS: MORPHINE SULFATE 10 MG/ML INJ IV PRN ×2 (12:11→16:58)
--- NOTE | 2019-01-06 12:13 | PDOC CONSULTATION ---
Consultation Consult Date: 01/06/19 Attending physician:: KIRSTIE VILLEGAS Consult reason:: hemotysis History of Present Illness Admission Date/PCP: 01/05/19 21:30 SHARONDA CARVAJAL JR, MD History of Present Illness: VIJAYA HUTTON is a 48 year old female, resented to the emergency room with 2 days of hemoptysis increasing in frequency as well as coughing up clots and bright red blood. She has never experienced this before. She admits to shortness of breath at rest as well as some dyspnea on exertion and does wear oxygen at home. In 2009 she was diagnosed with metastatic breast cancer treated subsequently she did well until August 2018 which time peaking short of breath had a pleural effusion which showed metastatic breast cancer again (please see oncology note). She really admits to a pack a day for 36 years but states she did have 6 years without cigarettes smoking. Her PPD was negative dates unknown she has also chronic lung disease as a child or adolescent. 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 and occupational exposure to potential respiratory toxins 2 dogs 2 cats no recent travel no angina-like chest pain sleeps on hospital bed about 45 degree angle because she gets short of breath when she lays down frequent PND occasional nocturnal cough no edema is unaware of any snoring prior to August she denies restless sleep nocturia 1 time a night she denies unrestful sleep or excessive daytime somnolence she does readily admit to weight loss decreased appetite Past Medical History Cardiac Medical History: Denies: Coronary Artery Disease, Myocardial Infarction, Hypertension Pulmonary Medical History: Reports: Bronchitis - X1, Chronic Obstructive Pulmonary Disease (COPD), Pneumonia Denies: Asthma EENT Medical History: Reports: Other - Left maxillary sinusitis Neurological Medical History: Reports: None Denies: Seizures Endocrine Medical History: Reports: None Renal/ Medical History: Reports: None Malignancy Medical History: Reports: Bone Cancer, Breast Cancer, Lung Cancer GI Medical History: Reports: None Musculoskeltal Medical History: Denies: Arthritis Skin Medical History: Reports: None Psychiatric Medical History: Reports: Tobacco Dependency Traumatic Medical History: Reports: None Hematology: Reports: Other - Left maxillary sinusitis Denies: Anemia Infectious Medical History: Reports: None Past Surgical History Past Surgical History: Reports: Section, Mastectomy Social History Lives with: Family Smoking Status: Current Every Day Smoker Cigarettes Packs Per Day: 1 Number of Years Smokin Passive smoke exposure as: , ,  Frequency of Alcohol Use: None Drugs: None Hx Prescription Drug Abuse: No Do you have pets?: Yes Have you had any respiratory illnesses as a child?: No Have you been exposed to any sick contacts recently?: No Have you had any recent respiratory illnesses?: No Have you travelled outside of [place] in the past 12 months?: Yes - Advance Directive Resuscitation Status: Full Code Family History Family History: COPD, Hypertension, Malignancy Parental Family History Reviewed: Yes Medication/Allergy Home Medications: Ibuprofen [Motrin 600 mg Tablet] 600 mg PO Q4HP PRN 12/20/18 Oxycodone HCl [Oxycodone HCl 10 MG Tablet] 10 mg PO Q4HP PRN 12/20/18 Albuterol Sulfate [Ventolin 0.083% Neb 2.5 mg/3 mL Ampul] 3 ml IH RTQ4HP PRN 01/06/19 Ondansetron HCl [Zofran 8 mg Tablet] 8 mg PO Q6HP PRN 01/06/19 Oxycodone HCl [Oxycontin] 20 mg PO Q12H 01/06/19 Thyroid 1 gr PO DAILY 01/06/19 Allergies/Adverse Reactions: No Known Allergies Allergy (Verified 12/23/18 08:12) Physical Exam Vital Signs: Temp Pulse Resp BP Pulse Ox 98.3 F 56 L 16 156/65 H 93 01/06/19 08:00 01/06/19 08:00 01/06/19 08:00 01/06/19 08:00 01/06/19 08:00 Intake & Output 01/05/19 01/06/19 01/07/19 06:59 06:59 06:59 Intake Total 2319 Balance 2319 Weight 49.2 kg General appearance: PRESENT: no acute distress, cooperative, disheveled, thin Head exam: PRESENT: atraumatic, normocephalic Eye exam: PRESENT: conjunctiva pale, EOMI. ABSENT: nystagmus, periorbital swelling Mouth exam: PRESENT: dry mucosa, neck supple, tongue midline Teeth exam: PRESENT: poor dentation Neck exam: ABSENT: carotid bruit, full ROM, JVD, lymphadenopathy, meningismus, tenderness, thyromegaly, tracheal deviation, tracheostomy, other Respiratory exam: PRESENT: decreased breath sounds, prolonged expiratory phas, rhonchi, unlabored. ABSENT: retraction, stridor Cardiovascular exam: PRESENT: RRR, +S1, +S2 Pulses: PRESENT: normal radial pulses GI/Abdominal exam: PRESENT: soft, tenderness Extremities exam: ABSENT: calf tenderness, clubbing, joint swelling, pedal edema Musculoskeletal exam: ABSENT: deformity, dislocation Neurological exam: PRESENT: alert, awake Psychiatric exam: PRESENT: appropriate affect Skin exam: PRESENT: dry, warm Results Laboratory Results: 01/06/19 05:55 01/06/19 05:55 01/05/19 01/05/19 01/05/19 16:20 16:20 16:20 WBC 5.5 RBC 3.64 L Hgb 12.6 Hct 36.9 MCV 101 H MCH 34.6 H MCHC 34.2 RDW 16.6 H Plt Count 418 Seg Neutrophils % 74.2 Lymphocytes % 18.3 Monocytes % 0.8 L Eosinophils % 5.7 Basophils % 1.0 Absolute Neutrophils 4.1 Absolute Lymphocytes 1.0 Absolute Monocytes 0.0 L Absolute Eosinophils 0.3 Absolute Basophils 0.1 Sodium 137.7 Potassium 3.5 L Chloride 100 Carbon Dioxide 28 Anion Gap 10 BUN 4 L Creatinine 0.55 Est GFR ( Amer) > 60 Est GFR (Non-Af Amer) > 60 Glucose 101 Calcium 9.0 Magnesium 2.0 Total Bilirubin 0.4 AST 46 H ALT 28 Alkaline Phosphatase 101 Total Protein 7.0 Albumin 3.9 Urine Color Urine Appearance Urine pH Ur Specific [place] Urine Protein Urine Glucose (UA) Urine Ketones Urine Blood Urine Nitrite Ur Leukocyte Esterase Urine WBC (Auto) 01/05/19 01/06/19 01/06/19 20:10 05:55 05:55 WBC 4.3 RBC 3.41 L Hgb 11.8 L Hct 34.5 L MCV 101 H MCH 34.7 H MCHC 34.4 RDW 17.2 H Plt Count 367 Seg Neutrophils % 70.3 Lymphocytes % 20.2 Monocytes % 0.9 L Eosinophils % 7.3 H Basophils % 1.3 Absolute Neutrophils 3.1 Absolute Lymphocytes 0.9 Absolute Monocytes 0.0 L Absolute Eosinophils 0.3 Absolute Basophils 0.1 Sodium 138.0 Potassium 3.8 Chloride 104 Carbon Dioxide 26 Anion Gap 8 BUN 3 L Creatinine 0.54 Est GFR ( Amer) > 60 Est GFR (Non-Af Amer) > 60 Glucose 74 L Calcium 8.8 Magnesium Total Bilirubin AST ALT Alkaline Phosphatase Total Protein Albumin Urine Color STRAW Urine Appearance CLEAR Urine pH 7.0 Ur Specific [place] 1.035 Urine Protein NEGATIVE Urine Glucose (UA) NEGATIVE Urine Ketones NEGATIVE Urine Blood NEGATIVE Urine Nitrite NEGATIVE Ur Leukocyte Esterase NEGATIVE Urine WBC (Auto) 1 Impressions: Chest X-Ray 01/05/19 16:37 IMPRESSION: Persistent masslike infiltrate right cardiophrenic angle. Left basilar infiltrate. Bilateral pleural effusions right greater than left. Consider CT of the chest with contrast as further evaluation if indicated. Chest CT 01/05/19 18:17 IMPRESSION: Findings suspicious for malignancy. Mild layering bilateral pleural effusions. Correlate with prior imaging studies. Assessment & Plan - Diagnosis (1) COPD (chronic obstructive pulmonary disease) with emphysema Qualifiers: Emphysema type: centrilobular Qualified Code(s): J43.2 - Centrilobular emphysema Is this a current diagnosis for this admission?: Yes Plan: Generic Name Dose Route Start Last Admin Trade Name Freq PRN Reason Stop Dose Admin Albuterol/Ipratropium 3 ml 01/05/19 21:34 01/06/19 06:22 Duoneb 3 Ml Ampul NEB 02/04/19 21:33 3 ml [id number] PRN SHORTNESS OF BREATH Albuterol/Ipratropium 3 ml 01/06/19 00:00 01/06/19 08:16 Duoneb 3 Ml Ampul NEB 02/05/19 00:00 3 ml RTQ8 GABE (2) Tobacco abuse Is this a current diagnosis for this admission?: Yes Plan: stop smoking (3) Tobacco abuse counseling Is this a current diagnosis for this admission?: Yes Plan: We discussed at length risk and dangers associated with continued tobacco use; transdermal nicotine (4) Breast cancer Qualifiers: Breast location: unspecified site of breast Estrogen receptor status: unspecified Patient sex: female Laterality: unspecified laterality Qualified Code(s): C50.919 - Malignant neoplasm of unspecified site of unspecified female breast Is this a current diagnosis for this admission?: Yes Plan: As per oncology metastatic (5) Hemoptysis Is this a current diagnosis for this admission?: Yes Plan: Infectious cause completed this is due to metastatic disease reviewing the CT scan and this seems to be increased narrowing of the bronchus intermedius with subsequent atelectasis of the right middle lobe probably proceed to complete atelectasis of the right middle and right lower lobe this indeed may be the source of her hemoptysis prognosis is very poor
--- NOTE | 2019-01-06 14:20 | PDOC PROGRESS REPORT ---
Subjective Progress Note for:: 01/06/19 Subjective:: This is a 48 yr old female with a PMH of recurrent stage IV breast cancer with widespread metastasis to lung, chronic left maxillary sinusitis, COPD and tobacco dependence who presented with productive cough and hemoptysis. Chest CT shows right lower lobe consolidation with layering effusion worse on the right. Lowets sats in the ER was 90%. No acute event overnight. This morning, she says her SOB has improved. She had productive cough and sputum on bedside was noted to have mild blood tinged but she says it was not as significant as yesterday. She complains of right sided pleuritic chest pain as well as some RUQ pain. She is currently saturating well on 2 lpm via [place]. Reason For Visit: STAGE 4 BREAST CA W METS TO LUNG HEMOPOSIS Physical Exam Vital Signs: Temp Pulse Resp BP Pulse Ox 97.9 F 64 17 188/77 H 97 01/06/19 11:08 01/06/19 11:08 01/06/19 11:08 01/06/19 11:08 01/06/19 11:08 Intake & Output 01/05/19 01/06/19 01/07/19 06:59 06:59 06:59 Intake Total 2319 1150 Balance 2319 1150 Weight 108 lb 7.479 oz General appearance: PRESENT: no acute distress, well-developed, well-nourished Head exam: PRESENT: atraumatic, normocephalic Eye exam: PRESENT: conjunctiva pink, EOMI, PERRLA. ABSENT: scleral icterus Ear exam: PRESENT: normal external ear exam Mouth exam: PRESENT: moist, tongue midline Neck exam: ABSENT: carotid bruit, JVD, lymphadenopathy, thyromegaly Respiratory exam: PRESENT: decreased breath sounds - right base, rhonchi. ABSEN T: rales, wheezes Pulses: PRESENT: normal dorsalis pedis pul GI/Abdominal exam: PRESENT: normal bowel sounds, soft. ABSENT: distended, guarding, mass, organolmegaly, rebound, tenderness Rectal exam: PRESENT: deferred Neurological exam: PRESENT: alert, awake, oriented to person, oriented to place, oriented to time, oriented to situation, CN II-XII grossly intact. ABSENT: motor sensory deficit Results Laboratory Results: 01/06/19 05:55 01/06/19 05:55 01/05/19 01/05/19 01/05/19 16:20 16:20 16:20 WBC 5.5 RBC 3.64 L Hgb 12.6 Hct 36.9 MCV 101 H MCH 34.6 H MCHC 34.2 RDW 16.6 H Plt Count 418 Seg Neutrophils % 74.2 Lymphocytes % 18.3 Monocytes % 0.8 L Eosinophils % 5.7 Basophils % 1.0 Absolute Neutrophils 4.1 Absolute Lymphocytes 1.0 Absolute Monocytes 0.0 L Absolute Eosinophils 0.3 Absolute Basophils 0.1 Sodium 137.7 Potassium 3.5 L Chloride 100 Carbon Dioxide 28 Anion Gap 10 BUN 4 L Creatinine 0.55 Est GFR ( Amer) > 60 Est GFR (Non-Af Amer) > 60 Glucose 101 Calcium 9.0 Magnesium 2.0 Total Bilirubin 0.4 AST 46 H ALT 28 Alkaline Phosphatase 101 Total Protein 7.0 Albumin 3.9 Urine Color Urine Appearance Urine pH Ur Specific [place] Urine Protein Urine Glucose (UA) Urine Ketones Urine Blood Urine Nitrite Ur Leukocyte Esterase Urine WBC (Auto) 01/05/19 01/06/19 01/06/19 20:10 05:55 05:55 WBC 4.3 RBC 3.41 L Hgb 11.8 L Hct 34.5 L MCV 101 H MCH 34.7 H MCHC 34.4 RDW 17.2 H Plt Count 367 Seg Neutrophils % 70.3 Lymphocytes % 20.2 Monocytes % 0.9 L Eosinophils % 7.3 H Basophils % 1.3 Absolute Neutrophils 3.1 Absolute Lymphocytes 0.9 Absolute Monocytes 0.0 L Absolute Eosinophils 0.3 Absolute Basophils 0.1 Sodium 138.0 Potassium 3.8 Chloride 104 Carbon Dioxide 26 Anion Gap 8 BUN 3 L Creatinine 0.54 Est GFR ( Amer) > 60 Est GFR (Non-Af Amer) > 60 Glucose 74 L Calcium 8.8 Magnesium Total Bilirubin AST ALT Alkaline Phosphatase Total Protein Albumin Urine Color STRAW Urine Appearance CLEAR Urine pH 7.0 Ur Specific [place] 1.035 Urine Protein NEGATIVE Urine Glucose (UA) NEGATIVE Urine Ketones NEGATIVE Urine Blood NEGATIVE Urine Nitrite NEGATIVE Ur Leukocyte Esterase NEGATIVE Urine WBC (Auto) 1 Impressions: Chest X-Ray 01/05/19 16:37 IMPRESSION: Persistent masslike infiltrate right cardiophrenic angle. Left basilar infiltrate. Bilateral pleural effusions right greater than left. Consider CT of the chest with contrast as further evaluation if indicated. Chest CT 01/05/19 18:17 IMPRESSION: Findings suspicious for malignancy. Mild layering bilateral pleural effusions. Correlate with prior imaging studies. Assessment & Plan - Diagnosis (1) Acute respiratory failure with hypoxia Is this a current diagnosis for this admission?: Yes Plan: Possibly from post obstructive pneumonia vs progression of metastatic lung disease. On 2 lpm via [place]. (2) Right lower lobe pneumonia Qualifiers: Pneumonia type: due to unspecified organism Qualified Code(s): J18.1 - Lobar pneumonia, unspecified organism Is this a current diagnosis for this admission?: Yes Plan: Possibly post obstructive. Continue IV antibiotics. Will order sputum culture as well. (3) Lung metastases Is this a current diagnosis for this admission?: Yes Plan: From Stage 4 breast CA. Discussed with pulmonology and oncology who both deem patient is not really gonna benefit from bronchoscopy. Plan is to see if she will continue to improve and be discharged home to resume chemotherapy as she only got her first treatment yet so far. - Time Time Spent with patient: 35 or more minutes
[2019-01-06] MEDS ORDERED: ONDANSETRON 4 MG TAB.RAPDIS PO PRN (15:15)
[2019-01-06] MEDS: OXYCODONE HCL IR 5 MG TABLET PO PRN (18:26)
[2019-01-06] MEDS ORDERED: IPRATROPIUM/ALBUTEROL 0.5-2.5 MG/3 ML AMPUL NEB PRN (23:30)
[2019-01-07] MEDS: MORPHINE SULFATE 10 MG/ML INJ IV PRN ×2 (00:06→08:42)
[2019-01-07] MEDS: IPRATROPIUM/ALBUTEROL 0.5-2.5 MG/3 ML AMPUL NEB SCH ×3 (01:57→14:13)
[2019-01-07] MEDS: OXYCODONE HCL IR 5 MG TABLET PO PRN ×2 (06:10→13:34)
[2019-01-07] MEDS: HEPARIN SOD (PORCINE) 5,000 UNIT/ML 1 ML SYRINGE SUBCUT SCH ×2 (06:20→13:24)
[2019-01-07] MEDS: VANCOMYCIN HCL 500 MG in DEXTROSE 5%-WATER 100 ML IV SCH ×2 (06:23→11:13)
--- NOTE | 2019-01-07 08:04 | PDOC PROGRESS REPORT ---
Subjective Progress Note for:: 01/07/19 Subjective:: Patient and have been concerned all night about breathing, anxiety, and hemoptysis. However, patient believes that her breathing has improved. She is not coughing as much. SHe would like to use her Duonebs q 4 hours as she does at home. She would also like to increase her pain medications. ROS: No constipation. Good appetite. No dysuria or chills. Reason For Visit: STAGE 4 BREAST CA W METS TO LUNG HEMOPOSIS Physical Exam Vital Signs: Temp Pulse Resp BP Pulse Ox 98.5 F 66 18 142/82 H 96 01/06/19 22:30 01/07/19 02:00 01/07/19 01:59 01/06/19 22:30 01/06/19 23:33 Intake & Output 01/06/19 01/07/19 01/08/19 06:59 06:59 06:59 Intake Total 2319 1500 Balance 2319 1500 Weight 49.2 kg 49 kg General appearance: PRESENT: no acute distress, well-developed, well-nourished Head exam: PRESENT: normocephalic Respiratory exam: PRESENT: unlabored Extremities exam: ABSENT: pedal edema Skin exam: PRESENT: normal color Results Laboratory Results: 01/06/19 05:55 01/06/19 05:55 Impressions: Chest X-Ray 01/05/19 16:37 IMPRESSION: Persistent masslike infiltrate right cardiophrenic angle. Left basilar infiltrate. Bilateral pleural effusions right greater than left. Consider CT of the chest with contrast as further evaluation if indicated. Chest CT 01/05/19 18:17 IMPRESSION: Findings suspicious for malignancy. Mild layering bilateral pleural effusions. Correlate with prior imaging studies. Assessment & Plan - Diagnosis (1) Breast cancer Qualifiers: Breast location: unspecified site of breast Estrogen receptor status: unspecified Patient sex: female Laterality: unspecified laterality Qualified Code(s): C50.919 - Malignant neoplasm of unspecified site of unspecified female breast Is this a current diagnosis for this admission?: Yes Plan: SHe is scheduled for chemo tomorrow. (2) Hemoptysis Is this a current diagnosis for this admission?: Yes Plan: I have explained that the amount of blood is not concerning to me. She will continue to watch. (3) Pain Is this a current diagnosis for this admission?: Yes Plan: I will increase long acting pain meds from 40 BID to 80 BID and continue short acting without changes. - Plan Summary Plan Summary: I believe she is stable for discharge today if portable Home O2 is arranged.
[2019-01-07] MEDS: NICOTINE 7 MG/24 HR PATCH.TD24 TD SCH (09:48)
[2019-01-07] MEDS ORDERED: OXYCODONE HCL SR 40 MG TABLET PO SCH (10:00)
[2019-01-07] MEDS: CEFEPIME 2 GM/D5W RTU 2 GM/50 ML RTUPB IV SCH (10:13)
[2019-01-07] MEDS: PSYLLIUM SEED-SF 5.85 GM PACKET PO SCH (10:13)
[2019-01-07] MEDS: FLUTICASONE NASAL SPRAY 50 MCG/SPRY 120 SPRAY/16 GM NASL SCH (10:14)
[2019-01-07] MEDS: THYROID (PORK) 60 MG TABLET PO SCH (10:15)
[2019-01-07 12:17] LABS: VANCOMYCIN,TROUGH 7.3 ug/mL (5.0-20.0)
[2019-01-07] MEDS ORDERED: ONDANSETRON HCL 8 MG TABLET PO PRN (13:02)
[2019-01-07] MEDS ORDERED: ALBUTEROL SULFATE 0.083% NEB 2.5 MG/3 ML AMPUL NEB PRN (13:02)
--- NOTE | 2019-01-07 13:17 | PDOC DISCHARGE SUMMARY ---
General - Admit/Disc Date/PCP Admission Date/Primary Care Provider: 01/05/19 21:30 SHARONDA CARVAJAL JR, MD Discharge Date: 12/30/18 - Discharge Diagnosis (1) Acute respiratory failure with hypoxia Is this a current diagnosis for this admission?: Yes Summary: Possibly from post obstructive pneumonia vs progression of metastatic lung disease. On 2 lpm via [place]. 01/07/2019-patient has history of COPD pulse ox on room air is 88% while walking in the hallway. She does qualify for the home oxygen. (2) Right lower lobe pneumonia Is this a current diagnosis for this admission?: Yes Summary: Possibly post obstructive. Continue IV antibiotics. Will order sputum culture as well. 01/07/2019-patient was treated with presumed pneumonia. The blood cultures and sputum cultures are negative so far. Gram stain is showing Cuca albicans. Patient is afebrile. Antibiotics are going to be continued today. Patient is afebrile throughout the hospital course she is went home antibiotics. (3) Tobacco abuse Is this a current diagnosis for this admission?: Yes Summary: 01/07/2019-patient has a history of chronic smoking ,smoking counseling was provided for more than 10 minutes. (4) Breast cancer Is this a current diagnosis for this admission?: Yes Summary: From Stage 4 breast CA. Discussed with pulmonology and oncology who both deem patient is not really gonna benefit from bronchoscopy. Plan is to see if she will continue to improve and be discharged home to resume chemotherapy as she only got her first treatment yet so far. 01/07/2019-patient has a stage IV breast cancer Dr. Mckeon is following the patient on regular basis patient was scheduled for chemotherapy after Dr. Patrick michael's office tomorrow. (5) Hemoptysis Is this a current diagnosis for this admission?: Yes Summary: nfectious cause completed this is due to metastatic disease reviewing the CT scan and this seems to be increased narrowing of the bronchus intermedius with subsequent atelectasis of the right middle lobe probably proceed to complete atelectasis of the right middle and right lower lobe this indeed may be the source of her hemoptysis prognosis is very poor 01/07/2019-patient came in with hemoptysis which was improving most likely causes right lower pneumonia. She is going home on levofloxacin 500 mg p.o. daily for 1 week. - Additional Information Resuscitation Status: Full Code Home Medications: Ibuprofen [Motrin 600 mg Tablet] 600 mg PO Q4HP PRN 12/20/18 Oxycodone HCl [Oxycodone HCl 10 MG Tablet] 10 mg PO Q4HP PRN 12/20/18 Albuterol Sulfate [Ventolin 0.083% Neb 2.5 mg/3 mL Ampul] 3 ml IH RTQ4HP PRN 01/06/19 Ondansetron HCl [Zofran 8 mg Tablet] 8 mg PO Q6HP PRN 01/06/19 Oxycodone HCl [Oxycontin] 20 mg PO Q12H 01/06/19 Thyroid 1 gr PO DAILY 01/06/19 History of Present Illness History of Present Illness: VIJAYA HUTTON is a 50 year old female 48 year old female with a past medical history of recurrent stage IV breast cancer with widespread metastasis to lung, chronic left maxillary sinusitis, COPD and tobacco dependence. She presents with 72 hours of worsening rhinorrhea, postnasal drip, shortness of breath and productive cough with purulent material and blood. Quantifying the blood to be approximately a tablespoon occurring approximately a dozen times over the last 12 hours. In the emergency room she has hypoxia, tachypnea, leukocytosis and a chest CT showing bilateral infiltrate worse on the right, with layering pleural effusion. Patient denies recent antibiotic use and complains of generalized pain and fatigue. Patient verifies her CODE STATUS to be full code Physical Exam Vital Signs: Temp Pulse Resp BP Pulse Ox 99.5 F 75 17 172/89 H 98 01/07/19 11:42 01/07/19 11:42 01/07/19 11:42 01/07/19 11:42 01/07/19 11:42 Intake & Output 01/06/19 01/07/19 01/08/19 06:59 06:59 06:59 Intake Total 2319 1500 150 Balance 2319 1500 150 Weight 49.2 kg 49 kg General appearance: PRESENT: no acute distress Head exam: PRESENT: atraumatic Eye exam: PRESENT: PERRLA Ear exam: PRESENT: normal external ear exam Mouth exam: PRESENT: moist, tongue midline Neck exam: ABSENT: carotid bruit, JVD, lymphadenopathy, thyromegaly Respiratory exam: PRESENT: decreased breath sounds Cardiovascular exam: PRESENT: tachycardia GI/Abdominal exam: PRESENT: normal bowel sounds, soft. ABSENT: distended, guarding, mass, organolmegaly, rebound, tenderness Extremities exam: PRESENT: full ROM. ABSENT: calf tenderness, clubbing, pedal edema Neurological exam: PRESENT: alert, awake, oriented to person, oriented to place, oriented to time, oriented to situation, CN II-XII grossly intact. ABSENT: motor sensory deficit Psychiatric exam: PRESENT: appropriate affect, normal mood. ABSENT: homicidal ideation, suicidal ideation Results Laboratory Results: 01/06/19 05:55 01/07/19 11:06 01/07/19 11:06 Creatinine 0.53 Est GFR ( Amer) > 60 Est GFR (Non-Af Amer) > 60 Impressions: Chest X-Ray 01/05/19 16:37 IMPRESSION: Persistent masslike infiltrate right cardiophrenic angle. Left basilar infiltrate. Bilateral pleural effusions right greater than left. Consider CT of the chest with contrast as further evaluation if indicated. Chest CT 01/05/19 18:17 IMPRESSION: Findings suspicious for malignancy. Mild layering bilateral pleural effusions. Correlate with prior imaging studies. Qualifiers - * PATIENT BEING DISCHARGED WITH ANY OF THE FOLLOWING DIAGNOSIS: No VTE patient discharged on overlapping Therapy?: No
[2019-01-07 15:52] VITALS: BP 148/77
[2019-01-08] MEDS ORDERED: THYROID PO SCH (10:00)
[2019-01-08] MEDS ORDERED: LEVOFLOXACIN 500 MG TABLET PO SCH (10:00)
== END 2019-01-07 18:45 | disposition home health service (06) | DRG 193 ==
LOC: ER 15:48 → EH 21:30 → 5 23:40
PROVIDERS: ADMIT Internal Medicine; ATTEND Internal Medicine
DX: J18.1 Lobar pneumonia, unspecified organism (principal); J96.01 Acute respiratory failure with hypoxia; K92.0 Hematemesis; C78.00 Secondary malignant neoplasm of unspecified lung; C78.39 Secondary malignant neoplasm of other respiratory organs; C50.919 Malignant neoplasm of unspecified site of unspecified female breast; J43.2 Centrilobular emphysema; G89.3 Neoplasm related pain (acute) (chronic); F17.210 Nicotine dependence, cigarettes, uncomplicated; Z90.10 Acquired absence of unspecified breast and nipple; Z71.6 Tobacco abuse counseling
CPT/HCPCS: 36415; 36591; 71046; 71260; 80048; 80053; 80202; 81001; 82565; 83735; 85025; 85610; 85730; 87040; 87070; 87101; 87205; 93005; 93010; 94640; 94799; 99285; J0692; J1644; J1885; J2270; J3370; J3490; J7030; J7620; S0119

== ENCOUNTER → 2019-03-03 | Outpatient (CLI) | payer OTHER ==
--- NOTE | 2019-03-03 11:17 | RADIOLOGY REPORT (SQ) ---
EXAM DESCRIPTION: CT CHEST WITH COMPLETED DATE/TIME: 03/03/2019 10:34 am REASON FOR STUDY: BREAST CA (C50.412) C50.412 MALIG NEOPLASM OF UPPER-OUTER QUADRANT OF LEFT FEMAL COMPARISON: 01/05/2019 TECHNIQUE: CT scan of the chest performed using helical scanning technique with dynamic intravenous contrast injection. Images reviewed with lung, soft tissue and bone windows. Reconstructed coronal and sagittal MPR and MIP images reviewed. All images stored on PACS. All CT scanners at this facility use dose modulation, iterative reconstruction, and/or weight based d osing when appropriate to reduce radiation dose to as low as reasonably achievable (ALARA). [facility]: Dose Right [facility]: CareDose [facility]: Dose Right [facility]: Teradose 4D [facility]: Ultora CONTRAST TYPE AND DOSE: contrast/concentration: Isovue 350.00 mg/ml; Total Contrast Delivered: 80.0 ml; Total Saline Delivered: 55.0 ml RENAL FUNCTION: Creatinine -0.5 RADIATION DOSE: CT Rad equipment meets quality standard of care and radiation dose reduction techniq ues were employed. CTDIvol: 3.0 mGy. DLP: 97 mGy-cm. . LIMITATIONS: None. FINDINGS: LUNGS AND PLEURA: The area of collapse/mass-like density in the right lower lobe has slig htly decreased in size. Interval increase in size of the bilateral pleural effusions, left greater t tse right. There appears be a slight decrease in size of a few of the previously demonstrated pleura l based nodules in the right lung. New atelectasis or infiltrate in the left lingula and left lower lobe. No pneumothorax. The central airways are clear. HILAR AND MEDIASTINAL STRUCTURES: Interval decrease in the low attenuated mediastinal and lymphadeno johann. HEART AND VASCULAR STRUCTURES: No aneurysm or dissection. No central pulmonary emboli. No pericardi al effusion. HARDWARE: Right Fyuknz-E-Xucv catheter, unchanged finding. UPPER ABDOMEN: Since the previous examination, the lesion in the dome of the liver has slightly incr eased in size and measures 1.6 cm in transverse diameter on the current study, compared to 1.1 cm on the prior examination. There are partially visualized and visualized other hepatic lesions, right an d left lobe. Limited exam. THYROID AND OTHER SOFT TISSUES: No masses. No adenopathy. BONES: The osseous structures are stable in appearance. OTHER: Left axillary lymph node dissection, unchanged finding. IMPRESSION: 1. Since the previous examination dated 01/05/2019, slight decrease in size of the right lower lobe collapse/mass-like density. Slight decrease in size of a few of the previously demonstra angie pleural based nodules in the right lung. 2. An interval increase in size of the bilateral pleural effusions, left greater than right. 3. Interval decrease in the mediastinal and hilar lymphadenopathy. 4. Hypoattenuated hepatic lesions are again identified, some are partially visualized. The lesion in the dome of the liver has slightly increased in size. 5. Additional findings as above. TECHNICAL DOCUMENTATION: JOB ID: [id number] Quality ID # [id number]: Final reports with documentation of one or more dose reduction techniques (e.g., Au tomated exposure control, adjustment of the mA and/or kV according to patient size, use of iterative reconstruction technique) 2010 [employer]- All Rights Reserved Reading location - IP/workstation name: [email or web address]
--- NOTE | 2019-03-03 12:09 | RADIOLOGY REPORT (SQ) ---
EXAM DESCRIPTION: CHEST 2 VIEWS COMPLETED DATE/TIME: 03/03/2019 10:37 am REASON FOR STUDY: PLEURAL EFFUSION (J91), SOB (R06.02) COMPARISON: 01/05/2019 EXAM PARAMETERS: NUMBER OF VIEWS: two views TECHNIQUE: Digital Frontal and Lateral radiographic views of the chest acquired. RADIATION DOSE: NA LIMITATIONS: none FINDINGS: LUNGS AND PLEURA: Persistent bilateral mild pleural effusions and atelectasis/infiltrate in the lower lungs, increase in the findings on the left. Mass-like opacity at the right lung base i s unchanged. Mild prominence of the interstitial markings may be on the basis of edema. No pneumoth orax. MEDIASTINUM AND HILAR STRUCTURES: No masses or contour abnormalities. HEART AND VASCULAR STRUCTURES: Stable appearance. BONES: No acute findings. HARDWARE: Right Dyvjxz-Y-Vcgd catheter, unchanged finding. OTHER: No other significant finding. IMPRESSION: 1. Bilateral persistent mild pleural effusions and atelectasis/infiltrates in the lower lungs, interval increase on the left. Mass-like opacity at the lower right lung base is unchanged. 2. Mild prominence of the interstitial markings in the lungs may represent edema, new findings. TECHNICAL DOCUMENTATION: JOB ID: [id number] [employer]- All Rights Reserved Reading location - IP/workstation name: [email or web address]
== END ==
LOC: RAD 10:04
PROVIDERS: ATTEND Internal Medicine Hematology & Oncology
DX: C50.412 Malignant neoplasm of upper-outer quadrant of left female breast (principal)
CPT/HCPCS: 71046; 71260

== ENCOUNTER 2019-03-06 15:59 | Inpatient (IN) | payer OTHER ==
--- NOTE | 2019-03-06 16:49 | RADIOLOGY REPORT (SQ) ---
EXAM DESCRIPTION: CHEST 2 VIEWS COMPLETED DATE/TIME: 03/06/2019 4:22 pm REASON FOR STUDY: dyspnea COMPARISON: 03/03/2019 EXAM PARAMETERS: NUMBER OF VIEWS: two views TECHNIQUE: Digital Frontal and Lateral radiographic views of the chest acquired. RADIATION DOSE: NA LIMITATIONS: none FINDINGS: LUNGS AND PLEURA: Stable appearance when compared to prior examination with bilateral, lef t greater than right pleural effusions, and diffuse interstitial lung markings. No new consolidation s MEDIASTINUM AND HILAR STRUCTURES: Obscured secondary to overlying opacities. HEART AND VASCULAR STRUCTURES: Obscured secondary to overlying opacities BONES: No acute findings. HARDWARE: None in the chest. OTHER: Right chest wall injection catheter present with the tip projecting near the cavoatrial juncti on. There is a Anne needle present within the injection catheter well. Surgical clips in the left axilla. IMPRESSION: Stable exam with bilateral pleural effusions and diffuse increased interstitial lung mar kings. No new findings. TECHNICAL DOCUMENTATION: JOB ID: [id number] [employer]- All Rights Reserved Reading location - IP/workstation name: [email or web address]
[2019-03-06 17:30] LABS: HEMATOCRIT 34.3 % (36.0-47.0); MEAN CORPUSCULAR HEMOGLOBIN 31.6 pg (27.0-33.4); MEAN CORPUSCULAR HGB CONC 33.5 g/dL (32.0-36.0); PLATELET COUNT 532 10^3/uL (150-450); RED BLOOD COUNT 3.63 10^6/uL (3.72-5.28); RED CELL DISTRIBUTION WIDTH 18.3 % (11.5-14.0)
[2019-03-06 17:37] LABS: INTERNATIONAL RATION (INR) 1.09; PROTHROMBIN TIME 14.7 SEC (11.4-15.4)
[2019-03-06 17:43] LABS: ALANINE AMINOTRANSFERASE 43 U/L (9-52); ALBUMIN 3.8 g/dL (3.5-5.0); ALKALINE PHOSPHATASE 266 U/L (38-126); ANION GAP 11 (5-19); ASPARTATE AMINO TRANSFERASE 55 U/L (14-36); BILIRUBIN,DIRECT 0.3 mg/dL (0.0-0.4); BILIRUBIN,TOTAL 0.4 mg/dL (0.2-1.3); BLOOD UREA NITROGEN 4 mg/dL (7-20); CALCIUM 9.1 mg/dL (8.4-10.2); CARBON DIOXIDE 31 mmol/L (22-30); CHLORIDE 99 mmol/L (98-107); CREATINE KINASE 125 U/L (30-135); GLUCOSE 101 mg/dL (75-110); POTASSIUM 3.4 mmol/L (3.6-5.0); SODIUM 141.3 mmol/L (137-145); TOTAL PROTEIN 7.3 g/dL (6.3-8.2)
[2019-03-06 17:50] LABS: ABSOLUTE LYMPHOCYTES# (MANUAL) 2.1 10^3/uL (0.5-4.7); ABSOLUTE MONOCYTES # (MANUAL) 3.5 10^3/uL (0.1-1.4); ABSOLUTE NEUTROPHILS# (MANUAL) 62.1 10^3/uL (1.7-8.2); BASOPHILS % (MANUAL) 0 % (0-2); EOSINOPHILS % (MANUAL) 2 % (0-6); LYMPHOCYTES % (MANUAL) 3 % (13-45); MONOCYTES % (MANUAL) 5 % (3-13); NUCLEATED RED BLOOD CELLS 4 /100 WBC (0); SEGMENTED NEUTROPHILS % (MAN) 90 % (42-78); TOTAL CELLS COUNTED 100
[2019-03-06 17:57] LABS: ANISOCYTOSIS 2+; OVALOCYTES SLIGHT; PLATELET COMMENT ADEQUATE; POIKILOCYTOSIS 1+; POLYCHROMASIA SLIGHT; TEAR DROP CELLS SLIGHT
[2019-03-06 18:01] LABS: TROPONIN I 0.272 ng/mL
[2019-03-06 18:07] LABS: MEAN CORPUSCULAR VOLUME 95 fl (80-97)
[2019-03-06 18:13] LABS: HEMOGLOBIN 11.5 g/dL (12.0-15.5)
[2019-03-06] MEDS ORDERED: FUROSEMIDE INJ/PF 40 MG/4 ML SDV IV ONE (18:56)
[2019-03-06] MEDS ORDERED: HYDROMORPHONE HCL INJ/PF 2 MG/ML AMPULE IV ONE (18:56)
[2019-03-06] MEDS ORDERED: MIDAZOLAM 2 MG/2 ML INJ IV ONE ×2 (19:00→19:24)
--- NOTE | 2019-03-06 19:10 | ER Document Report ---
ED General - General Chief Complaint: Breathing Difficulty Stated Complaint: CHEST TIGHTNESS Time Seen by Provider: 03/06/19 18:24 Cannot obtain history due to: Unstable vital signs, Altered mental status Notes: Patient is a 48-year-old female with a past medical history of metastatic breast cancer with metastases throughout the lungs who presents due to increasing shortness of breath. History is quite limited on initial assessment as the patient is actively in respiratory distress, crying out for help. The reports that the patient has had progressively worsening shortness of breath over the last 5 days although admits her general respiratory status has been deteriorating dramatically over the last 8 weeks. She is currently using 3 L nasal cannula baseline at home and reports that over the last 4 to 5 days she can hardly get even into her wheelchair without becoming extremely short of breath. States that it became much worse today prompting them to come to the emergency department for assessment. She is not currently receiving chemotherapy due to her general poor condition and inability to tolerate at this time. states that the patient frequently has "attacks" that make her have difficulty breathing but that he has not seen 1 to this degree of severity in the past. History otherwise limited secondary to patient's degree of distress at time of initial evaluation. TRAVEL OUTSIDE OF THE [place] IN LAST 30 DAYS: No - Related Data Allergies/Adverse Reactions: No Known Allergies Allergy (Verified 12/23/18 08:12) Past Medical History - General Information source: Relative Cannot obtain history due to: Unstable vital signs, Altered mental status - Social History Smoking Status: Former Smoker Frequency of alcohol use: None Drug Abuse: None Lives with: Spouse/Significant other Family History: COPD, Hypertension, Malignancy - Past Medical History Cardiac Medical History: Denies: Hx Coronary Artery Disease, Hx Heart Attack, Hx Hypertension Pulmonary Medical History: Reports: Hx Bronchitis - X1, Hx COPD, Hx Pneumonia Denies: Hx Asthma Neurological Medical History: Denies: Hx Cerebrovascular Accident, Hx Seizures Endocrine Medical History: Reports: Hx Hypothyroidism Renal/ Medical History: Denies: Hx Peritoneal Dialysis Malignancy Medical History: Reports: Hx Bone Cancer, Hx Breast Cancer, Hx Lung Cancer Musculoskeletal Medical History: Denies Hx Arthritis Past Surgical History: Reports: Hx Breast Surgery - left mastectomy, Hx Section, Hx Mastectomy - Immunizations Hx Diphtheria, Pertussis, Tetanus Vaccination: No Review of Systems - Review of Systems Notes: Constitutional: Negative for fever. HENT: Negative for sore throat. Eyes: Negative for visual changes. Cardiovascular: Negative for chest pain. Respiratory: Positive for shortness of breath. Positive for cough Gastrointestinal: Negative for abdominal pain, positive nausea Genitourinary: Negative for dysuria. Musculoskeletal: Negative for back pain. Skin: Negative for rash. Neurological: Negative for headaches, weakness or numbness. 10 point ROS negative except as marked above and in HPI. Physical Exam - Vital signs Vitals: Temp Pulse Resp BP Pulse Ox 97.7 F 86 24 H 144/86 H 91 L 03/06/19 16:06 03/06/19 16:06 03/06/19 16:06 03/06/19 16:06 03/06/19 16:06 Interpretation: Hypoxic, Tachypneic Notes: PHYSICAL EXAMINATION: GENERAL: Appears much older than stated age, frail, diaphoretic and clearly very uncomfortable HEAD: Atraumatic, normocephalic. EYES: Pupils equal round and reactive to light, extraocular movements intact, sclera anicteric, conjunctiva are normal. ENT: nares patent, oropharynx clear without exudates. Mildly dry mucous membranes. NECK: Normal range of motion, supple without lymphadenopathy LUNGS: Scattered expiratory wheezing in all lung nicole, rales throughout. Moderate respiratory distress with tachypnea, short frequent breaths. HEART: Regular rate and rhythm without murmurs ABDOMEN: Soft, nontender, normoactive bowel sounds. No guarding, no rebound. No masses appreciated. EXTREMITIES: Normal range of motion, no pitting or edema. No cyanosis. NEUROLOGICAL: No focal neurological deficits. Moves all extremities spontaneously. PSYCH: Highly anxious, tearful SKIN: Warm, Dry, normal turgor, no rashes or lesions noted. Course - Re-evaluation Re-evalutation: 03/06/19 19:01 Documentation is delayed secondary to me being at the patient's bedside. Patient presents in respiratory distress, diaphoretic, with rales and wheezing in all lung nicole. Saturations 89% on 3L by nasal cannula which is her baseline oxygen dependence. Patient was highly anxious as well on my initial presentation crying out for help and then also stated that she could not tolerate BiPAP. However on BiPAP on 60% FiO2 her saturations did improve to 97% and her work of breathing did improve substantially. I had initially ordered midazolam as patient continued very anxious on BiPAP stating she was claustrophobic and could not tolerate the mask. However after a brief period of time on BiPAP the patient settled comfortably and did not actually need this medication to be administered. I do suspect there is a component of underlying CHF with associated volume overload as patient symptoms dramatically worse today per the after she received 2 units of packed red blood cells. Her chest x-ray does not show any significant change in the pleural effusions from the sixth and these are mild in nature and I do not believe that a thoracentesis is emergently required or even necessary required during this hospitalization. I did speak at length to the patient's oncologist Dr. De La Cruz who likewise noted that the patient was seen in her office yesterday, it was in no increased work of breathing at that time and the chest x-ray was obtained on the sixth which showed no difference in the pleural effusions from today versus that date. We did review the patient's overall presentation, patient is likely most appropriate for hospice setting although patient and her are not yet ready to make this transition. Will proceed with CT of the chest to exclude underlying pulmonary embolus as the etiology of the patient's worsening symptoms. Her labs are notable for a market leukocytosis actually somewhat improved from previous. Her troponin is also in the indeterminate range at 0.2 and is demand mediated as I do not suspect that this would be an ACS presentation nor would she be an appropriate candidate for cardiac catheterization at this point. BNP is pending. Furosemide 40 mg will be administered. Will continue to reassess at regular intervals. Patient is in guarded condition and will require frequent reassessments. 03/06/19 20:08 Repeat troponin is pending. Patient is much improved clinically no longer in any distress on BiPAP. Resting comfortably. Awaiting CTA of the chest. and patient updated on diagnostic findings consistent with CHF and volume overload. 03/06/19 21:37 Troponin is mildly increased from initial to 0.5. Patient continues to rest comfortably on BiPAP at this time. CT of the chest does not demonstrate any acute pulmonary embolus. I did discuss at length with Dr. Dacosta who has accepted the patient for admission. I did update the patient and her at the bedside. I did have an extensive conversation with the regarding the patient's extremely poor prognosis and advised that palliative and/or hospice care should be strongly considered. Family is currently comfortable with admission. - Vital Signs Vital signs: Temp Pulse Resp BP Pulse Ox 98.4 F 95 22 H 134/84 H 98 03/07/19 01:40 03/07/19 01:40 03/07/19 01:40 03/07/19 01:40 03/07/19 01:40 - Laboratory Result Diagrams: 03/06/19 17:00 03/06/19 17:00 Laboratory results interpreted by me: 03/06/19 03/06/19 03/06/19 16:06 17:00 17:00 WBC 69.0 H* RBC 3.63 L Hgb 11.5 L D Hct 34.3 L RDW 18.3 H Plt Count 532 H Seg Neuts % (Manual) 90 H Lymphocytes % (Manual) 3 L Abs Neuts (Manual) 62.1 H Abs Monocytes (Manual) 3.5 H Absolute Eos (Manual) 1.4 H Potassium 3.4 L Carbon Dioxide 31 H BUN 4 L AST 55 H Alkaline Phosphatase 266 H NT-Pro-B Natriuret Pep 4260 H - Diagnostic Test Radiology reviewed: Image reviewed, Reports reviewed Radiology results interpreted by me: 03/06/19 21:38 Chest x-ray: Bilateral pleural effusions, interstitial markings consistent with pulmonary edema - EKG Interpretation by Me Additional EKG results interpreted by me: 03/06/19 21:38 Sinus rhythm, rate 82, left bundle branch block. Unchanged from previous. Critical Care Note - Critical Care Note Total time excluding time spent on procedures (mins): 45 Comments: Critical care time spent obtaining history from patient or surrogate, discussions with consultants, development of treatment plan with patient or surrogate, evaluation of patient's response to treatment, examination of patient, ordering and performing treatments and interventions, ordering and review of laboratory studies, re-evaluation of patient's condition, ordering and review of radiographic studies and review of old charts Discharge - Discharge Clinical Impression: Respiratory distress, Acute respiratory failure with hypoxia Lung metastases Qualifiers: Laterality: unspecified laterality Qualified Code(s): C78.00 - 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
--- NOTE | 2019-03-06 19:47 | EKG REPORT ---
SEVERITY:- ABNORMAL ECG - SINUS RHYTHM ATRIAL PREMATURE COMPLEX LEFT BUNDLE BRANCH BLOCK : Confirmed by: Tabitha Kahn MD 06-Mar-2019 19:46:03
--- NOTE | 2019-03-06 20:33 | RADIOLOGY REPORT (SQ) ---
CT CHEST ANGIOGRAPHY WITHOUT THEN WITH IV CONTRAST HISTORY: Shortness of breath. COMPARISON: 03/03/2019 TECHNIQUE: CT angiogram of the chest with IV contrast. 3-D MIP images were obtained in coronal and sagittal reconstructions. This exam was performed according to our departmental dose-optimization program, which includes automated exposure control, adjustment of the mA and/or kV according to patient size and/or use of iterative reconstruction technique. FINDINGS: No filling defects are identified in the pulmonary trunk, main left and right pulmonary arteries, or the segmental branches. There is a moderate left and small right pleural effusion with compressive atelectasis. There is also collapse of the right lower lobe not significantly changed from prior study no pneumothorax is seen. No gross mediastinal or hilar adenopathy. The heart size is mildly enlarged but without pericardial effusion. The visualized upper abdomen demonstrates multiple hypodensities in the liver. The bony thorax is intact. Left axillary surgical clips are noted. IMPRESSION: 1. No acute pulmonary embolism. 2. Unchanged bilateral pleural effusions with right lower lobe collapse.
[2019-03-06] MEDS ORDERED: ACETAMINOPHEN 325 MG TABLET PO PRN (21:39)
[2019-03-06] MEDS ORDERED: IPRATROPIUM/ALBUTEROL 0.5-2.5 MG/3 ML AMPUL NEB PRN (21:39)
[2019-03-06] MEDS ORDERED: MAG HYDROX/AL HYDROX/SIMETH SUSP 30 ML UDCUP PO PRN (21:39)
[2019-03-06] MEDS ORDERED: MAGNESIUM HYDROXIDE SUSP 30 ML UDCUP PO PRN (21:39)
[2019-03-06] MEDS ORDERED: OXYCODONE HCL SR 10 MG TABLET PO PRN (22:00)
[2019-03-06] MEDS ORDERED: OXYCODONE HCL SR 10 MG TABLET PO SCH (22:00)
[2019-03-06 22:18] LABS: PHOSPHORUS 3.9 mg/dL (2.5-4.5)
[2019-03-06] MEDS: CHLORPHENIRAMINE MALEATE 4 MG TABLET PO SCH (23:23)
[2019-03-06] MEDS: POTASSIUM CHLORIDE 10 MEQ CAPSULE.ER PO SCH (23:26)
[2019-03-06] MEDS: FUROSEMIDE INJ/PF 40 MG/4 ML SDV IV SCH (23:26)
[2019-03-06] MEDS: HEPARIN SOD (PORCINE) 5,000 UNIT/ML 1 ML SYRINGE SUBCUT SCH (23:27)
[2019-03-07] MEDS: IPRATROPIUM/ALBUTEROL 0.5-2.5 MG/3 ML AMPUL NEB SCH ×3 (00:39→16:14)
[2019-03-07] MEDS: CHLORPHENIRAMINE MALEATE 4 MG TABLET PO SCH ×3 (03:35→17:19)
[2019-03-07 05:02] LABS: ALANINE AMINOTRANSFERASE 35 U/L (9-52); ALKALINE PHOSPHATASE 255 U/L (38-126); ANION GAP 16 (5-19); ASPARTATE AMINO TRANSFERASE 51 U/L (14-36); BILIRUBIN,DIRECT 0.5 mg/dL (0.0-0.4); BILIRUBIN,TOTAL 0.5 mg/dL (0.2-1.3); BLOOD UREA NITROGEN 4 mg/dL (7-20); CARBON DIOXIDE 27 mmol/L (22-30); CHLORIDE 98 mmol/L (98-107); GLUCOSE 89 mg/dL (75-110); POTASSIUM 3.3 mmol/L (3.6-5.0); SODIUM 141.4 mmol/L (137-145); TOTAL PROTEIN 7.4 g/dL (6.3-8.2)
[2019-03-07 05:34] LABS: HEMATOCRIT 38.9 % (36.0-47.0); MEAN CORPUSCULAR HEMOGLOBIN 31.6 pg (27.0-33.4); MEAN CORPUSCULAR HGB CONC 33.5 g/dL (32.0-36.0); MEAN CORPUSCULAR VOLUME 94 fl (80-97); PLATELET COUNT 657 10^3/uL (150-450); RED BLOOD COUNT 4.12 10^6/uL (3.72-5.28); RED CELL DISTRIBUTION WIDTH 18.9 % (11.5-14.0)
[2019-03-07 05:49] LABS: ALANINE AMINOTRANSFERASE 36 U/L (9-52); ALBUMIN 3.9 g/dL (3.5-5.0); ALKALINE PHOSPHATASE 261 U/L (38-126); ANION GAP 15 (5-19); ASPARTATE AMINO TRANSFERASE 52 U/L (14-36); BILIRUBIN,DIRECT 0.4 mg/dL (0.0-0.4); BILIRUBIN,TOTAL 0.5 mg/dL (0.2-1.3); BLOOD UREA NITROGEN 5 mg/dL (7-20); CARBON DIOXIDE 31 mmol/L (22-30); CHLORIDE 97 mmol/L (98-107); GLUCOSE 94 mg/dL (75-110); POTASSIUM 3.4 mmol/L (3.6-5.0); SODIUM 142.6 mmol/L (137-145); TOTAL PROTEIN 7.4 g/dL (6.3-8.2)
[2019-03-07] MEDS: HEPARIN SOD (PORCINE) 5,000 UNIT/ML 1 ML SYRINGE SUBCUT SCH ×3 (06:02→22:41)
[2019-03-07 06:19] LABS: WHITE BLOOD COUNT 72.2 10^3/uL (4.0-10.5)
[2019-03-07 06:20] LABS: ABSOLUTE LYMPHOCYTES# (MANUAL) 1.4 10^3/uL (0.5-4.7); ABSOLUTE MONOCYTES # (MANUAL) 2.9 10^3/uL (0.1-1.4); ABSOLUTE NEUTROPHILS# (MANUAL) 67.9 10^3/uL (1.7-8.2); ANISOCYTOSIS 2+; BAND NEUTROPHILS % (MANUAL) 7 % (3-5); BASOPHILS % (MANUAL) 0 % (0-2); EOSINOPHILS % (MANUAL) 0 % (0-6); LYMPHOCYTES % (MANUAL) 2 % (13-45); MONOCYTES % (MANUAL) 4 % (3-13); PLATELET COMMENT INCREASED; POLYCHROMASIA 1+; SEGMENTED NEUTROPHILS % (MAN) 87 % (42-78); TOTAL CELLS COUNTED 100; TOXIC GRANULATION 1+; TOXIC VACUOLATION PRESENT
[2019-03-07] MEDS ORDERED: OXYCODONE HCL SR 10 MG TABLET PO SCH (10:00)
[2019-03-07] MEDS: FLUTICASONE NASAL SPRAY 50 MCG/SPRY 120 SPRAY/16 GM NASL SCH (10:56)
[2019-03-07] MEDS: FUROSEMIDE INJ/PF 40 MG/4 ML SDV IV SCH (10:57)
[2019-03-07] MEDS: DOCUSATE SODIUM 100 MG CAPSULE PO SCH ×2 (10:58→17:11)
[2019-03-07] MEDS: POTASSIUM CHLORIDE 10 MEQ CAPSULE.ER PO SCH (10:58)
[2019-03-07] MEDS: THYROID (PORK) 60 MG TABLET PO SCH (10:58)
[2019-03-07] MEDS: ANASTROZOLE 1 MG TABLET PO SCH (10:58)
[2019-03-07] MEDS: FLUOXETINE HCL 20 MG CAPSULE PO SCH (11:00)
--- NOTE | 2019-03-07 13:46 | PDOC CONSULTATION ---
Consultation Consult Date: 03/07/19 Provider Consulted: ZULEMA RIOJAS Consult reason:: Hematology/Oncology consultation was requested for patient with Stage IV Lung cancer and worsening dyspnea. History of Present Illness Admission Date/PCP: 03/06/19 21:45 ZULEMA RIOJAS MD History of Present Illness: VIJAYA HUTTON is a 48 year old female who was diagnosed with adenocarcinoma in pleural fluid 09/20/2018. Cells were consistent with metastatic breast cancer. Most recently she has been receiving treatment with Gemzar/Abraxane, last dose 02/13/2019. She did have neulasta after this cycle. Repeat CT after this dose showed a mixed response with improvement in all lung lesions, but growth in the liver. She also continues Arimidex anti-hormonal pills for the cancer. She underwent pRBC transfusion yesterday during which time she became progressively more dyspnic. She was evaluated in the ED, placed on BiPAP and CTA was negative for PE. Today, she is off the Bipap and is feeling much better. She is still concerned about a blockage in her left nasal passage which she believes is co ntributing to her hypoxia and anxiety. Past Medical History Cardiac Medical History: Denies: Coronary Artery Disease, Myocardial Infarction, Hypertension Pulmonary Medical History: Reports: Bronchitis - X1, Chronic Obstructive Pul monary Disease (COPD), Pneumonia Denies: Asthma Neurological Medical History: Denies: Seizures Endocrine Medical History: Reports: Hypothyroidism Malignancy Medical History: Reports: Bone Cancer, Breast Cancer, Lung Cancer Musculoskeltal Medical History: Denies: Arthritis Psychiatric Medical History: Denies: Depression Hematology: Denies: Anemia Past Surgical History Past Surgical History: Reports: Section, Mastectomy Social History Lives with: Spouse/Significant other Smoking Status: Former Smoker Cigarettes Packs Per Day: 0.5 Number of Years Smokin Frequency of Alcohol Use: None Hx Recreational Drug Use: No Drugs: None Hx Prescription Drug Abuse: No Family History Family History: COPD, Hypertension, Malignancy Parental Family History Reviewed: Yes - Mother CAD. Children Family History Reviewed: No Sibling(s) Family History Reviewed.: No Medication/Allergy Home Medications: Ibuprofen [Motrin 600 mg Tablet] 600 mg PO Q4HP PRN 12/20/18 Oxycodone HCl [Oxycodone HCl 10 MG Tablet] 20 mg PO Q4HP PRN 12/20/18 Albuterol Sulfate [Ventolin 0.083% Neb 2.5 mg/3 mL Ampul] 3 ml IH RTQ4HP PRN 01/06/19 Ondansetron HCl [Zofran 8 mg Tablet] 8 mg PO Q6HP PRN 01/06/19 Thyroid 2 gr PO DAILY 01/06/19 Albuterol Sulfate [Proair Hfa Inhalation Aerosol 8.5 gm Mdi] 1 puff IH Q4HP PRN 03/07/19 Anastrozole [Arimidex 1 mg Tablet] 1 mg PO DAILY 03/07/19 Diphenhydramine HCl [Benadryl] 50 mg PO Q4HP PRN 03/07/19 Fluoxetine HCl [Prozac] 20 mg PO DAILY 03/07/19 Fluticasone Propionate [Flonase Nasal [place] 50 Mcg/[place] 16 gm] 1 spray NASL Q12 03/07/19 Lorazepam [Ativan 0.5 mg Tablet] 0.5 mg PO Q4HP PRN 03/07/19 Oxycodone HCl [Oxycontin Sr 40 mg Tablet] 80 mg PO Q12 03/07/19 Oxymetazoline HCl [Nasal [place]] 1 spray NS DAILYP PRN 03/07/19 Phenylephrine HCl [Nasal Decongestant Pe] 10 mg PO DAILYP PRN 03/07/19 Polyethylene Glycol 3350 [Miralax Powder 17 gm/Packet] 1 packet PO BID 03/07/19 Potassium Chloride [Klor-Con M20] 20 meq PO BID 03/07/19 Promethazine HCl [Phenergan 25 mg Tablet] 25 mg PO Q8HP PRN 03/07/19 Sennosides/Docusate Sodium [Senna-S Tablet] 1 each PO DAILYP PRN 03/07/19 Simethicone [Gas Relief] 125 mg PO TID 03/07/19 Allergies/Adverse Reactions: No Known Allergies Allergy (Verified 12/23/18 08:12) Review of Systems Constitutional: ABSENT: fever(s), headache(s) Eyes: ABSENT: visual disturbances Ears: ABSENT: hearing changes Nose, Mouth, and Throat: PRESENT: other - Sinus congestion. Cardiovascular: PRESENT: dyspnea on exertion Respiratory: PRESENT: dyspnea. ABSENT: hemoptysis Gastrointestinal: ABSENT: abdominal pain Genitourinary: ABSENT: dysuria Musculoskeletal: PRESENT: back pain Integumentary: ABSENT: rash Neurological: PRESENT: weakness Psychiatric: PRESENT: anxiety Hematologic/Lymphatic: ABSENT: easy bleeding Physical Exam Vital Signs: Temp Pulse Resp BP Pulse Ox 97.7 F 109 H 24 H 114/79 98 03/07/19 08:33 03/07/19 08:33 03/07/19 08:33 03/07/19 08:33 03/07/19 08:33 Intake & Output 03/06/19 03/07/19 03/08/19 06:59 06:59 06:59 Intake Total 200 Output Total 500 Balance -300 Weight 47.9 kg General appearance: PRESENT: thin, other - Mild resp distress. Head exam: PRESENT: normocephalic Eye exam: PRESENT: EOMI, PERRLA Mouth exam: PRESENT: tongue midline Neck exam: ABSENT: tenderness, thyromegaly Respiratory exam: PRESENT: decreased breath sounds - bilateral bases., wheezes Cardiovascular exam: PRESENT: RRR GI/Abdominal exam: PRESENT: soft. ABSENT: tenderness Extremities exam: ABSENT: pedal edema Musculoskeletal exam: PRESENT: normal inspection Neurological exam: PRESENT: alert, awake Psychiatric exam: PRESENT: anxious Focused psych exam: PRESENT: restlessness Skin exam: PRESENT: normal color Results Laboratory Results: 03/07/19 04:42 03/07/19 04:42 03/06/19 03/06/19 03/06/19 17:00 17:00 17:00 WBC 69.0 H* RBC 3.63 L Hgb 11.5 L D Hct 34.3 L MCV 95 D MCH 31.6 MCHC 33.5 RDW 18.3 H Plt Count 532 H Seg Neutrophils % Not Reportable Lymphocytes % Not Reportable Monocytes % Not Reportable Eosinophils % Not Reportable Basophils % Not Reportable Absolute Neutrophils Not Reportable Absolute Lymphocytes Not Reportable Absolute Monocytes Not Reportable Absolute Eosinophils Not Reportable Absolute Basophils Not Reportable Sodium 141.3 Potassium 3.4 L Chloride 99 Carbon Dioxide 31 H Anion Gap 11 BUN 4 L Creatinine 0.56 Est GFR ( Amer) > 60 Est GFR (Non-Af Amer) > 60 Glucose 101 Calcium 9.1 Phosphorus 3.9 Magnesium 1.6 Total Bilirubin 0.4 AST 55 H ALT 43 Alkaline Phosphatase 266 H Total Protein 7.3 Albumin 3.8 TSH 03/07/19 03/07/19 03/07/19 03:50 03:50 04:42 WBC Cancelled 72.2 H* RBC Cancelled 4.12 Hgb Cancelled 13.0 Hct Cancelled 38.9 MCV Cancelled 94 MCH Cancelled 31.6 MCHC Cancelled 33.5 RDW Cancelled 18.9 H Plt Count Cancelled 657 H Seg Neutrophils % Cancelled Not Reportable Lymphocytes % Cancelled Not Reportable Monocytes % Cancelled Not Reportable Eosinophils % Cancelled Not Reportable Basophils % Cancelled Not Reportable Absolute Neutrophils Cancelled Not Reportable Absolute Lymphocytes Cancelled Not Reportable Absolute Monocytes Cancelled Not Reportable Absolute Eosinophils Cancelled Not Reportable Absolute Basophils Cancelled Not Reportable Sodium 141.4 Potassium 3.3 L Chloride 98 Carbon Dioxide 27 Anion Gap 16 BUN 4 L Creatinine 0.52 Est GFR ( Amer) > 60 Est GFR (Non-Af Amer) > 60 Glucose 89 Calcium 9.0 Phosphorus Magnesium Total Bilirubin 0.5 AST 51 H ALT 35 Alkaline Phosphatase 255 H Total Protein 7.4 Albumin 4.0 TSH 03/07/19 03/07/19 04:42 08:21 WBC RBC Hgb Hct MCV MCH MCHC RDW Plt Count Seg Neutrophils % Lymphocytes % Monocytes % Eosinophils % Basophils % Absolute Neutrophils Absolute Lymphocytes Absolute Monocytes Absolute Eosinophils Absolute Basophils Sodium 142.6 Potassium 3.4 L Chloride 97 L Carbon Dioxide 31 H Anion Gap 15 BUN 5 L Creatinine 0.57 Est GFR ( Amer) > 60 Est GFR (Non-Af Amer) > 60 Glucose 94 Calcium 9.0 Phosphorus Magnesium Total Bilirubin 0.5 AST 52 H ALT 36 Alkaline Phosphatase 261 H Total Protein 7.4 Albumin 3.9 TSH 32.90 H 03/06/19 03/06/19 03/06/19 16:06 17:00 17:00 Creatine Kinase 125 CK-MB (CK-2) 4.00 Troponin I 0.272 NT-Pro-B Natriuret Pep 4260 H 03/06/19 03/07/19 03/07/19 20:50 03:50 08:45 Creatine Kinase CK-MB (CK-2) Troponin I 0.544 0.329 0.254 NT-Pro-B Natriuret Pep Impressions: Chest X-Ray 03/06/19 00:00 IMPRESSION: Stable exam with bilateral pleural effusions and diffuse increased interstitial lung markings. No new findings. Chest/Abdomen CTA 03/06/19 19:10 IMPRESSION: 1. No acute pulmonary embolism. 2. Unchanged bilateral pleural effusions with right lower lobe collapse. Status: Image reviewed by me Assessment & Plan - Diagnosis (1) Acute respiratory failure with hypoxia Is this a current diagnosis for this admission?: Yes Plan: Unclear as to cause of this. Most likely combination of anxiety, pleural effusion, and possible other acute process. (2) Breast cancer Qualifiers: Breast location: unspecified site of breast Estrogen receptor status: unspecified Patient sex: female Laterality: unspecified laterality Qualified Code(s): C50.919 - Malignant neoplasm of unspecified site of unspecified female breast Is this a current diagnosis for this admission?: Yes Plan: With Lung and liver mets. She remains on Arimidex. Plan to continue chemo next week if she is strong enough. (3) Maxillary sinusitis, acute Is this a current diagnosis for this admission?: Yes Plan: She has complained of a blockage in her sinuses. I will order CT sinuses today to evaluate. (4) Leukocytosis Is this a current diagnosis for this admission?: Yes Plan: She did receive neulasta. However, she may also have an acute infection. I have discuss this with Dr. De León. Will hold off on starting antibiotics for now, but will watch for fever and consider starting ABX within the next 24 hours, based on clinical course. (5) Pulmonary edema Qualifiers: Chronicity: acute Qualified Code(s): J81.0 - Acute pulmonary edema Is this a current diagnosis for this admission?: Yes Plan: Will check ECHO to rule out CHF. - Plan Summary Plan Summary: Patient was discussed with Dr. De León. All questions were answered to the best of my ability.
[2019-03-07] MEDS: OXYCODONE HCL IR 5 MG TABLET PO PRN ×3 (13:52→22:39)
[2019-03-07 16:00] LABS: FLUID APPEARANCE SLIGHTLY HAZY; FLUID COLOR YELLOW; FLUID SOURCE LUNG; FLUID TYPE PLEURAL
[2019-03-07 16:01] LABS: FLUID VISCOSITY LIQUID
--- NOTE | 2019-03-07 16:11 | RADIOLOGY REPORT (SQ) ---
EXAM DESCRIPTION: CHEST SINGLE VIEW COMPLETED DATE/TIME: 03/07/2019 3:09 pm REASON FOR STUDY: POST THORA PE COMPARISON: Two-view chest 03/06/2019, 10/25/2018 CT chest 03/06/2019 EXAM PARAMETERS: NUMBER OF VIEWS: One view. TECHNIQUE: Single frontal radiographic view of the chest acquired. RADIATION DOSE: NA LIMITATIONS: None. FINDINGS: LUNGS AND PLEURA: Immediate post left thoracentesis with removal of 700 mL of fluid from t he left chest. No pneumothorax. Trace residual fluid in the lateral costophrenic sulcus. No signif icant basilar airspace disease. No left pneumothorax. Chronic right pleural effusion, similar compared to 10/17/2018 with chronic appearing partial collaps e of the right lower lobe. MEDIASTINUM AND HILAR STRUCTURES: No masses. Contour normal. HEART AND VASCULAR STRUCTURES: No cardiomegaly BONES: No acute findings. HARDWARE: Right jugular central line tip superior vena cava. Old surgical clips left axilla post mas tectomy. OTHER: No other significant finding. IMPRESSION: Post left thoracentesis with re-expansion of the left lung, no pneumothorax, and trace r esidual left pleural fluid. TECHNICAL DOCUMENTATION: JOB ID: [id number] [employer]- All Rights Reserved Reading location - IP/workstation name: [email or web address]
--- NOTE | 2019-03-07 16:40 | RADIOLOGY REPORT (SQ) ---
EXAM DESCRIPTION: U/S THORACENTESIS WITH IMAGING COMPLETED DATE/TIME: 03/07/2019 3:42 pm REASON FOR STUDY: SOb,bilateral pleural eff COMPARISON: Chest films 03/06/2019, CT angio chest 03/06/2019 LIMITATIONS: None. PROCEDURE: Procedure, risks, benefit, and alternative explained to patient who then gave written con sent. The posterior left chest wall was marked using ultrasound guidance. A time-out was called for correct marking verification. Chest prepped and draped using sterile technique. Local anesthesia ac hieved using 5 ml of 1% lidocaine injection. A 5fr needle/catheter set was introduced into the left pleural space. Fluid was aspirated. The catheter was removed and the entry site was covered with st erile bandage. No immediate complications noted. Fluid was sent for testing. Images acquired during the procedure were stored on PACS. FINDINGS: ENTRY SITE: Posterior left chest FLUID VOLUME: 700 mL FLUID ANALYSIS: Clear yellow fluid OTHER: Sent for testing IMPRESSION: SUCCESSFUL LEFT THORACENTESIS USING ULTRASOUND GUIDANCE. COMMENT: Patient medication list reviewed: Yes- Quality ID# [id number]:Eligible professional attests to doc umenting in the medical record they obtained, updated, or reviewed the patient's current medications. TECHNICAL DOCUMENTATION: JOB ID: [id number] [employer] All Rights Reserved Reading location - IP/workstation name: [email or web address]
--- NOTE | 2019-03-07 17:12 | RADIOLOGY REPORT (SQ) ---
EXAM DESCRIPTION: CHEST SINGLE VIEW COMPLETED DATE/TIME: 03/07/2019 5:04 pm REASON FOR STUDY: POST THORA PE COMPARISON: 03/07/2019, 1503 hours EXAM PARAMETERS: NUMBER OF VIEWS: One view. TECHNIQUE: Single frontal radiographic view of the chest acquired. RADIATION DOSE: NA LIMITATIONS: None. FINDINGS: LUNGS AND PLEURA: No pneumothorax 2 hours post left thoracentesis. Left lung is re-expanded with trace residual fluid in the lateral costophrenic sulcus. Stable chronic right pleural effusion with chronic partial collapse right lower lobe. MEDIASTINUM AND HILAR STRUCTURES: No masses. Contour normal. HEART AND VASCULAR STRUCTURES: Heart normal in size. Normal vasculature. BONES: No acute findings. HARDWARE: Post left mastectomy with left axillary surgical clips. Right permanent central line tip s uperior vena cava OTHER: No other significant finding. IMPRESSION: No pneumothorax 2 hours post left thoracentesis TECHNICAL DOCUMENTATION: JOB ID: [id number] [employer]- All Rights Reserved Reading location - IP/workstation name: [email or web address]
--- NOTE | 2019-03-07 17:54 | PDOC PROGRESS REPORT ---
Subjective Progress Note for:: 03/07/19 Subjective:: This is a 48 year old female who was diagnosed with adenocarcinoma in pleural fluid in Aug 2018 consistent with metastatic breast cancer was on Gemzar/Abraxane and neulasta who presented with increasing SOB. Chest CTA shows bilateral pleural effusions and right lower lobe collapse. Upon encounter this morning, patient says she still has SOB. Discussed with patient and and both verbalized she is a FULL CODE and does not want to consider hospice at this time. Discussed with oncology as well. There has been plan to do thoracentesis before she was amitted. Will proceed with this. Discussed benefits and risks and patient wishes to puruse thoracentesis. Reason For Visit: STAGE 4 BREAST CA W METS SOB Physical Exam Vital Signs: Temp Pulse Resp BP Pulse Ox 97.7 F 109 H 24 H 114/79 98 03/07/19 08:33 03/07/19 08:33 03/07/19 08:33 03/07/19 08:33 03/07/19 08:33 Intake & Output 03/06/19 03/07/19 03/08/19 06:59 06:59 06:59 Intake Total 200 Output Total 500 Balance -300 Weight 105 lb 9.623 oz General appearance: PRESENT: mild distress, thin Head exam: PRESENT: atraumatic, normocephalic Eye exam: PRESENT: conjunctiva pink, EOMI, PERRLA. ABSENT: scleral icterus Ear exam: PRESENT: normal external ear exam Mouth exam: PRESENT: moist, tongue midline Neck exam: ABSENT: carotid bruit, JVD, lymphadenopathy, thyromegaly Respiratory exam: PRESENT: rales, rhonchi. ABSENT: wheezes Cardiovascular exam: PRESENT: RRR. ABSENT: diastolic murmur, rubs, systolic murmur Pulses: PRESENT: normal dorsalis pedis pul GI/Abdominal exam: PRESENT: normal bowel sounds, soft. ABSENT: distended, guarding, mass, organolmegaly, rebound, tenderness Rectal exam: PRESENT: deferred Neurological exam: PRESENT: alert, awake, oriented to person, oriented to place, oriented to time, oriented to situation, CN II-XII grossly intact. ABSENT: motor sensory deficit Results Laboratory Results: 03/07/19 04:42 03/07/19 04:42 03/06/19 03/06/19 03/06/19 17:00 17:00 17:00 WBC 69.0 H* RBC 3.63 L Hgb 11.5 L D Hct 34.3 L MCV 95 D MCH 31.6 MCHC 33.5 RDW 18.3 H Plt Count 532 H Seg Neutrophils % Not Reportable Lymphocytes % Not Reportable Monocytes % Not Reportable Eosinophils % Not Reportable Basophils % Not Reportable Absolute Neutrophils Not Reportable Absolute Lymphocytes Not Reportable Absolute Monocytes Not Reportable Absolute Eosinophils Not Reportable Absolute Basophils Not Reportable Sodium 141.3 Potassium 3.4 L Chloride 99 Carbon Dioxide 31 H Anion Gap 11 BUN 4 L Creatinine 0.56 Est GFR ( Amer) > 60 Est GFR (Non-Af Amer) > 60 Glucose 101 Calcium 9.1 Phosphorus 3.9 Magnesium 1.6 Total Bilirubin 0.4 AST 55 H ALT 43 Alkaline Phosphatase 266 H Total Protein 7.3 Albumin 3.8 TSH 03/07/19 03/07/19 03/07/19 03:50 03:50 04:42 WBC Cancelled 72.2 H* RBC Cancelled 4.12 Hgb Cancelled 13.0 Hct Cancelled 38.9 MCV Cancelled 94 MCH Cancelled 31.6 MCHC Cancelled 33.5 RDW Cancelled 18.9 H Plt Count Cancelled 657 H Seg Neutrophils % Cancelled Not Reportable Lymphocytes % Cancelled Not Reportable Monocytes % Cancelled Not Reportable Eosinophils % Cancelled Not Reportable Basophils % Cancelled Not Reportable Absolute Neutrophils Cancelled Not Reportable Absolute Lymphocytes Cancelled Not Reportable Absolute Monocytes Cancelled Not Reportable Absolute Eosinophils Cancelled Not Reportable Absolute Basophils Cancelled Not Reportable Sodium 141.4 Potassium 3.3 L Chloride 98 Carbon Dioxide 27 Anion Gap 16 BUN 4 L Creatinine 0.52 Est GFR ( Amer) > 60 Est GFR (Non-Af Amer) > 60 Glucose 89 Calcium 9.0 Phosphorus Magnesium Total Bilirubin 0.5 AST 51 H ALT 35 Alkaline Phosphatase 255 H Total Protein 7.4 Albumin 4.0 TSH 03/07/19 03/07/19 04:42 08:21 WBC RBC Hgb Hct MCV MCH MCHC RDW Plt Count Seg Neutrophils % Lymphocytes % Monocytes % Eosinophils % Basophils % Absolute Neutrophils Absolute Lymphocytes Absolute Monocytes Absolute Eosinophils Absolute Basophils Sodium 142.6 Potassium 3.4 L Chloride 97 L Carbon Dioxide 31 H Anion Gap 15 BUN 5 L Creatinine 0.57 Est GFR ( Amer) > 60 Est GFR (Non-Af Amer) > 60 Glucose 94 Calcium 9.0 Phosphorus Magnesium Total Bilirubin 0.5 AST 52 H ALT 36 Alkaline Phosphatase 261 H Total Protein 7.4 Albumin 3.9 TSH 32.90 H 03/06/19 03/06/19 03/06/19 16:06 17:00 17:00 Creatine Kinase 125 CK-MB (CK-2) 4.00 Troponin I 0.272 NT-Pro-B Natriuret Pep 4260 H 03/06/19 03/07/19 03/07/19 20:50 03:50 08:45 Creatine Kinase CK-MB (CK-2) Troponin I 0.544 0.329 0.254 NT-Pro-B Natriuret Pep Impressions: Chest/Abdomen CTA 03/06/19 19:10 IMPRESSION: 1. No acute pulmonary embolism. 2. Unchanged bilateral pleural effusions with right lower lobe collapse. Chest X-Ray 03/07/19 00:00 IMPRESSION: Post left thoracentesis with re-expansion of the left lung, no pneumothorax, and trace residual left pleural fluid. Assessment and Plan - Diagnosis (1) Acute respiratory failure with hypoxia Is this a current diagnosis for this admission?: Yes Plan: Secondary to bilateral pleural effusion and right lower lung collapse. (2) Pleural effusion Is this a current diagnosis for this admission?: Yes Plan: Will proceed with thoracentesis as mentioned above. (3) COPD (chronic obstructive pulmonary disease) with emphysema Qualifiers: Emphysema type: unspecified Qualified Code(s): J43.9 - Emphysema, unspecified Is this a current diagnosis for this admission?: Yes Plan: Not in exacerbation. Breathing treatments as needed. (4) Lung metastases Qualifiers: Laterality: unspecified laterality Qualified Code(s): C78.00 - Secondary malignant neoplasm of unspecified lung Is this a current diagnosis for this admission?: Yes Plan: Oncology following. (5) Breast cancer Qualifiers: Breast location: unspecified site of breast Estrogen receptor status: unspecified Patient sex: female Laterality: unspecified laterality Qualified Code(s): C50.919 - Malignant neoplasm of unspecified site of unspecified female breast Is this a current diagnosis for this admission?: Yes Plan: As per number 3. - Time Time Spent with patient: 25-34 minutes
[2019-03-07 18:21] LABS: FREE T3 2.15 pg/mL (2.77-5.27); FREE T4 (FREE THYROXINE) 0.71 ng/dL (0.78-2.19)
[2019-03-07] MEDS: CEFTRIAXONE SODIUM 1,000 MG in DEXTROSE 5%-WATER 50 ML IV SCH (18:54)
[2019-03-07] MEDS: OXYCODONE HCL SR 10 MG TABLET PO SCH (18:56)
[2019-03-07] MEDS: LORAZEPAM 0.5 MG TABLET PO PRN (22:41)
[2019-03-08] MEDS: IPRATROPIUM/ALBUTEROL 0.5-2.5 MG/3 ML AMPUL NEB SCH ×4 (00:18→20:25)
--- NOTE | 2019-03-08 00:27 | RADIOLOGY REPORT (SQ) ---
EXAM DESCRIPTION: CT HEAD WITHOUT IV CONTRAST COMPLETED DATE/TME: 03/07/2019 00:00 CLINICAL HISTORY: 48 years, Female, Evaluate for sinus problems in patient with cancer COMPARISON: None. TECHNIQUE: Noncontrast CT of the head was performed. Coronal and sagittal reformations were created. Images stored on PACS. All CT scanners at this facility use dose modulation, iterative reconstruction, and/or weight based dosing when appropriate to reduce radiation dose to as low as reasonably achievable (ALARA). [facility]: Dose Right [facility]: CareDose [facility]: Dose Right [facility]: Teradose 4D [facility]: Hipscan LIMITATIONS: None. FINDINGS: Brain parenchyma is normal in attenuation. No acute intracranial hemorrhage, mass effect, or extra-axial fluid is seen. The ventricles, sulci, and basilar cisterns are normal in size and configuration. Globes and orbits are normal. Paranasal sinuses and mastoid air cells are clear. There are no depressed skull fractures. IMPRESSION: No acute intracranial abnormality. TECHNICAL DOCUMENTATION: Quality ID # [id number]: Final reports with documentation of one or more dose reduction techniques (e.g., Automated exposure control, adjustment of the mA and/or kV according to patient size, use of iterative reconstruction technique) copyright 2010 [employer]- All Rights Reserved
[2019-03-08] MEDS: CHLORPHENIRAMINE MALEATE 4 MG TABLET PO SCH ×3 (00:59→12:09)
[2019-03-08] MEDS: OXYCODONE HCL IR 5 MG TABLET PO PRN ×4 (02:23→22:31)
[2019-03-08] MEDS: OXYCODONE HCL SR 10 MG TABLET PO SCH ×2 (05:25→17:06)
[2019-03-08] MEDS: HEPARIN SOD (PORCINE) 5,000 UNIT/ML 1 ML SYRINGE SUBCUT SCH ×3 (05:28→22:31)
[2019-03-08] MEDS: IPRATROPIUM/ALBUTEROL 0.5-2.5 MG/3 ML AMPUL NEB PRN ×2 (05:45→13:27)
--- NOTE | 2019-03-08 08:22 | PDOC PROGRESS REPORT ---
Subjective Progress Note for:: 03/08/19 Subjective:: Patient feels much better after thoracentesis yesterday. No events overnight. She ate well last night. Reason For Visit: STAGE 4 BREAST CA W METS SOB Physical Exam Vital Signs: Temp Pulse Resp BP Pulse Ox 97.3 F 100 18 107/54 L 97 03/07/19 23:01 03/08/19 07:00 03/08/19 05:46 03/07/19 23:01 03/08/19 05:46 Intake & Output 03/07/19 03/08/19 03/09/19 06:59 06:59 06:59 Intake Total 200 1639 Output Total 500 450 Balance -300 1189 Weight 47.9 kg 47.2 kg General appearance: PRESENT: well-developed, well-nourished Head exam: PRESENT: normocephalic Respiratory exam: PRESENT: decreased breath sounds - Right base. Better air movement through left base. Cardiovascular exam: PRESENT: RRR Extremities exam: ABSENT: pedal edema Neurological exam: PRESENT: alert, awake Psychiatric exam: PRESENT: appropriate affect. ABSENT: agitated, anxious Focused psych exam: ABSENT: restlessness Skin exam: PRESENT: normal color Results Laboratory Results: 03/07/19 04:42 03/07/19 04:42 03/07/19 03/07/19 03/07/19 08:21 08:21 14:40 Total Protein TSH 32.90 H Free T4 0.71 L Free T3 pg/mL 2.15 L Fluid Type PLEURAL Fluid Source LUNG Fluid Color YELLOW Fluid Appearance SLIGHTLY HAZY Fluid Viscosity LIQUID Fluid WBC 1028 Fluid RBC 3494 03/07/19 14:40 Total Protein Cancelled TSH Free T4 Free T3 pg/mL Fluid Type Fluid Source Fluid Color Fluid Appearance Fluid Viscosity Fluid WBC Fluid RBC 03/06/19 03/06/19 03/06/19 16:06 17:00 17:00 Creatine Kinase 125 CK-MB (CK-2) 4.00 Troponin I 0.272 NT-Pro-B Natriuret Pep 4260 H 03/06/19 03/07/19 03/07/19 20:50 03:50 08:45 Creatine Kinase CK-MB (CK-2) Troponin I 0.544 0.329 0.254 NT-Pro-B Natriuret Pep 03/07/19 15:52 Creatine Kinase CK-MB (CK-2) Troponin I 0.218 NT-Pro-B Natriuret Pep Impressions: Chest/Abdomen CTA 03/06/19 19:10 IMPRESSION: 1. No acute pulmonary embolism. 2. Unchanged bilateral pleural effusions with right lower lobe collapse. Head CT 03/07/19 00:00 IMPRESSION: No acute intracranial abnormality. TECHNICAL DOCUMENTATION: Quality ID # 436: Final reports with documentation of one or more dose reduction techniques (e.g., Automated exposure control, adjustment of the mA and/or kV according to patient size, use of iterative reconstruction technique) copyright 2011 [employer]- All Rights Reserved Thoracentesis Ultrasound 03/07/19 00:00 IMPRESSION: SUCCESSFUL LEFT THORACENTESIS USING ULTRASOUND GUIDANCE. Chest X-Ray 03/07/19 17:00 IMPRESSION: No pneumothorax 2 hours post left thoracentesis Assessment & Plan - Diagnosis (1) Acute respiratory failure with hypoxia Is this a current diagnosis for this admission?: Yes (2) Breast cancer Qualifiers: Breast location: unspecified site of breast Estrogen receptor status: unspecified Patient sex: female Laterality: unspecified laterality Qualified Code(s): C50.919 - Malignant neoplasm of unspecified site of unspecified female breast Is this a current diagnosis for this admission?: Yes (3) Maxillary sinusitis, acute Is this a current diagnosis for this admission?: Yes (4) Leukocytosis Is this a current diagnosis for this admission?: Yes (5) Pulmonary edema Qualifiers: Chronicity: acute Qualified Code(s): J81.0 - Acute pulmonary edema Is this a current diagnosis for this admission?: Yes - Plan Summary Plan Summary: Patient much improved today. Continue home meds without changes, including the Prozac and Ativan PRN. OK for discharge from my standpoint with follow-up later this week as previously scheduled.
[2019-03-08] MEDS: FLUTICASONE NASAL SPRAY 50 MCG/SPRY 120 SPRAY/16 GM NASL SCH (09:16)
[2019-03-08] MEDS: FLUOXETINE HCL 20 MG CAPSULE PO SCH (09:17)
[2019-03-08] MEDS: DOCUSATE SODIUM 100 MG CAPSULE PO SCH ×2 (09:17→18:12)
[2019-03-08] MEDS: THYROID (PORK) 60 MG TABLET PO SCH (09:18)
[2019-03-08] MEDS: ANASTROZOLE 1 MG TABLET PO SCH (09:18)
[2019-03-08] MEDS: LEVOTHYROXINE SODIUM 0.075 MG TABLET PO SCH (09:35)
[2019-03-08] MEDS ORDERED: CEFTRIAXONE 1 GM/D5W RTU 1 GM/50 ML RTUPB IV SCH (10:00)
[2019-03-08] MEDS ORDERED: POTASSIUM CHLORIDE 10 MEQ CAPSULE.ER PO SCH (10:00)
[2019-03-08] MEDS: LIDOCAINE 5% (700 MG) TRANSDERMAL ADH..PATCH TP SCH (12:09)
--- NOTE | 2019-03-08 14:47 | PDOC PROGRESS REPORT ---
Subjective Progress Note for:: 03/08/19 Subjective:: This is a 48 year old female who was diagnosed with adenocarcinoma in pleural fluid in Aug 2018 consistent with metastatic breast cancer was on Gemzar/Abraxane and neulasta who presented with increasing SOB. Chest CTA shows bilateral pleural effusions and right lower lobe collapse. 03/07: Upon encounter this morning, patient says she still has SOB. Discussed with patient and and both verbalized she is a FULL CODE and does not want to consider hospice at this time. Discussed with oncology as well. There has been plan to do thoracentesis before she was amitted. Will proceed with this. Discussed benefits and risks and patient wishes to pursue thoracentesis. 03/08: No acute event overnight. She underwent left sided thoracentesis yesterday and had 700 cc drained. She says she feels much better today and is complaining of mild pain on the puncture site. She is now saturating well on nasal cannula. Reason For Visit: STAGE 4 BREAST CA W METS SOB Physical Exam Vital Signs: Temp Pulse Resp BP Pulse Ox 98.7 F 92 16 110/68 97 03/08/19 11:45 03/08/19 13:27 03/08/19 13:27 03/08/19 11:45 03/08/19 13:27 Intake & Output 03/07/19 03/08/19 03/09/19 06:59 06:59 06:59 Intake Total 200 1639 355 Output Total 500 450 300 Balance -300 1189 55 Weight 105 lb 9.623 oz 104 lb 0.931 oz General appearance: PRESENT: no acute distress, well-developed, well-nourished Head exam: PRESENT: atraumatic, normocephalic Eye exam: PRESENT: conjunctiva pink, EOMI, PERRLA. ABSENT: scleral icterus Ear exam: PRESENT: normal external ear exam Mouth exam: PRESENT: moist, tongue midline Neck exam: ABSENT: carotid bruit, JVD, lymphadenopathy, thyromegaly Respiratory exam: PRESENT: rales, rhonchi. ABSENT: wheezes Cardiovascular exam: PRESENT: RRR. ABSENT: diastolic murmur, rubs, systolic murmur Pulses: PRESENT: normal dorsalis pedis pul GI/Abdominal exam: PRESENT: normal bowel sounds, soft. ABSENT: distended, guarding, mass, organolmegaly, rebound, tenderness Rectal exam: PRESENT: deferred Neurological exam: PRESENT: alert, awake, oriented to person, oriented to place, oriented to time, oriented to situation, CN II-XII grossly intact. ABSENT: motor sensory deficit Results Laboratory Results: 03/07/19 04:42 03/07/19 04:42 03/07/19 03/07/19 03/07/19 08:21 14:40 14:40 Total Protein Cancelled Free T4 0.71 L Free T3 pg/mL 2.15 L Fluid Type PLEURAL Fluid Source LUNG Fluid Color YELLOW Fluid Appearance SLIGHTLY HAZY Fluid Viscosity LIQUID Fluid WBC 1028 Fluid RBC 3494 03/06/19 03/06/19 03/06/19 16:06 17:00 17:00 Creatine Kinase 125 CK-MB (CK-2) 4.00 Troponin I 0.272 NT-Pro-B Natriuret Pep 4260 H 03/06/19 03/07/19 03/07/19 20:50 03:50 08:45 Creatine Kinase CK-MB (CK-2) Troponin I 0.544 0.329 0.254 NT-Pro-B Natriuret Pep 03/07/19 15:52 Creatine Kinase CK-MB (CK-2) Troponin I 0.218 NT-Pro-B Natriuret Pep Impressions: Chest/Abdomen CTA 03/06/19 19:10 IMPRESSION: 1. No acute pulmonary embolism. 2. Unchanged bilateral pleural effusions with right lower lobe collapse. Head CT 03/07/19 00:00 IMPRESSION: No acute intracranial abnormality. TECHNICAL DOCUMENTATION: Quality ID # 436: Final reports with documentation of one or more dose reduction techniques (e.g., Automated exposure control, adjustment of the mA and/or kV according to patient size, use of iterative reconstruction technique) copyright 2011 [employer]- All Rights Reserved Thoracentesis Ultrasound 03/07/19 00:00 IMPRESSION: SUCCESSFUL LEFT THORACENTESIS USING ULTRASOUND GUIDANCE. Chest X-Ray 03/07/19 17:00 IMPRESSION: No pneumothorax 2 hours post left thoracentesis Assessment and Plan - Diagnosis (1) Acute respiratory failure with hypoxia Is this a current diagnosis for this admission?: Yes Plan: Secondary to bilateral pleural effusion and right lower lung collapse. (2) Pleural effusion Is this a current diagnosis for this admission?: Yes Plan: S/P left sided thoracentesis yesterday 03/07/19 and had 700 cc drained. She says she feels much better today and is complaining of mild pain on the puncture site. She is now saturating well on nasal cannula. (3) COPD (chronic obstructive pulmonary disease) with emphysema Qualifiers: Emphysema type: unspecified Qualified Code(s): J43.9 - Emphysema, unspecified Is this a current diagnosis for this admission?: Yes Plan: Not in exacerbation. Breathing treatments as needed. (4) Lung metastases Qualifiers: Laterality: unspecified laterality Qualified Code(s): C78.00 - Secondary malignant neoplasm of unspecified lung Is this a current diagnosis for this admission?: Yes Plan: Oncology following. (5) Breast cancer Qualifiers: Breast location: unspecified site of breast Estrogen receptor status: unspecified Patient sex: female Laterality: unspecified laterality Qualified Code(s): C50.919 - Malignant neoplasm of unspecified site of unspecified female breast Is this a current diagnosis for this admission?: Yes Plan: As per number 3. (6) Hypothyroidism Is this a current diagnosis for this admission?: Yes Plan: Synthroid 75 mcg added. - Time Time Spent with patient: 25-34 minutes
--- NOTE | 2019-03-08 16:39 | RADIOLOGY REPORT (SQ) ---
EXAM DESCRIPTION: CHEST SINGLE VIEW COMPLETED DATE/TIME: 03/08/2019 4:21 pm REASON FOR STUDY: Sudden onset SOB s/p thoracentesis COMPARISON: Chest films 10/25/2018, 12/23/2018, 03/06/2019, 03/07/2019 CT chest 03/06/2019 EXAM PARAMETERS: NUMBER OF VIEWS: One view. TECHNIQUE: Single frontal radiographic view of the chest acquired. RADIATION DOSE: NA LIMITATIONS: None. FINDINGS: LUNGS AND PLEURA: Persistent stable right small pleural effusion with pleural thickening a nd right lower lobe scarring. No left-sided pneumothorax. Trace left lateral costophrenic sulcus pleural fluid unchanged from 03/07. No focal left-sided pulmonary infiltrates. MEDIASTINUM AND HILAR STRUCTURES: No masses. Contour normal. HEART AND VASCULAR STRUCTURES: Heart normal in size. Normal vasculature. BONES: No acute findings. HARDWARE: None in the chest. OTHER: No other significant finding. IMPRESSION: Stable appearance of the chest compared to 03/07/2019. No pneumothorax. TECHNICAL DOCUMENTATION: JOB ID: [id number] [employer]- All Rights Reserved Reading location - IP/workstation name: [email or web address]
[2019-03-08] MEDS: METHYLPREDNISOLONE INJ 40 MG/1 ML SDV IV SCH (17:07)
[2019-03-08] MEDS: CEFTRIAXONE SODIUM 1,000 MG in DEXTROSE 5%-WATER 50 ML IV SCH (17:07)
[2019-03-08 19:21] LABS: ARTERIAL BLOOD BASE EXCESS 8.5 mmol/L; ARTERIAL BLOOD H2CO3 1.41 mmol/L (1.05-1.35); ARTERIAL BLOOD HCO3 33.3 mmol/L (20-24); ARTERIAL BLOOD O2 SATURATION 97.8 % (94-98); ARTERIAL BLOOD PH 7.47 (7.35-7.45); ARTERIAL BLOOD PO2 100.3 mmHg (80-100); ARTERIAL BLOOD TOTAL CO2 34.7 mmol/L (21-25)
[2019-03-08 19:29] LABS: ARTERIAL BLOOD FIO2 3
[2019-03-08] MEDS: LORAZEPAM 0.5 MG TABLET PO PRN (20:25)
[2019-03-08 21:32] LABS: HEMATOCRIT 33.9 % (36.0-47.0); HEMOGLOBIN 11.2 g/dL (12.0-15.5); MEAN CORPUSCULAR HEMOGLOBIN 32.2 pg (27.0-33.4); MEAN CORPUSCULAR HGB CONC 32.9 g/dL (32.0-36.0); PLATELET COUNT 549 10^3/uL (150-450); RED BLOOD COUNT 3.47 10^6/uL (3.72-5.28); RED CELL DISTRIBUTION WIDTH 22.3 % (11.5-14.0)
[2019-03-08 21:41] LABS: MEAN CORPUSCULAR VOLUME 98 fl (80-97)
[2019-03-08 21:44] LABS: ALANINE AMINOTRANSFERASE 25 U/L (9-52); ALBUMIN 3.8 g/dL (3.5-5.0); ALKALINE PHOSPHATASE 220 U/L (38-126); ANION GAP 12 (5-19); ASPARTATE AMINO TRANSFERASE 42 U/L (14-36); BILIRUBIN,DIRECT 0.3 mg/dL (0.0-0.4); BILIRUBIN,TOTAL 0.3 mg/dL (0.2-1.3); BLOOD UREA NITROGEN 11 mg/dL (7-20); CALCIUM 8.6 mg/dL (8.4-10.2); CARBON DIOXIDE 31 mmol/L (22-30); CHLORIDE 96 mmol/L (98-107); GLUCOSE 145 mg/dL (75-110); POTASSIUM 4.4 mmol/L (3.6-5.0); TOTAL PROTEIN 7.2 g/dL (6.3-8.2)
[2019-03-08 21:46] LABS: WHITE BLOOD COUNT 46.9 10^3/uL (4.0-10.5)
[2019-03-08 22:01] LABS: ABSOLUTE LYMPHOCYTES# (MANUAL) 2.3 10^3/uL (0.5-4.7); ABSOLUTE MONOCYTES # (MANUAL) 2.3 10^3/uL (0.1-1.4); ABSOLUTE NEUTROPHILS# (MANUAL) 41.7 10^3/uL (1.7-8.2); BAND NEUTROPHILS % (MANUAL) 6 % (3-5); BASOPHILS % (MANUAL) 0 % (0-2); EOSINOPHILS % (MANUAL) 1 % (0-6); LYMPHOCYTES % (MANUAL) 5 % (13-45); MONOCYTES % (MANUAL) 5 % (3-13); NUCLEATED RED BLOOD CELLS 2 /100 WBC (0); SEGMENTED NEUTROPHILS % (MAN) 75 % (42-78); TOTAL CELLS COUNTED 100; TOXIC GRANULATION 1+
[2019-03-08 22:02] LABS: ANISOCYTOSIS 3+; PLATELET COMMENT INCREASED; PLATELET GIANT PRESENT; POLYCHROMASIA 1+; SCHISTOCYTES 1+; STOMATOCYTES 1+
[2019-03-08 22:04] LABS: METAMYELOCYTES % (MANUAL) 3 % (0)
[2019-03-08 22:05] LABS: MYELOCYTES % (MANUAL) 3 % (0); PROMYELOCYTES % (MANUAL) 2 % (0)
[2019-03-09] MEDS: IPRATROPIUM/ALBUTEROL 0.5-2.5 MG/3 ML AMPUL NEB SCH ×2 (02:47→08:12)
[2019-03-09] MEDS: OXYCODONE HCL SR 10 MG TABLET PO SCH (05:45)
[2019-03-09] MEDS: HEPARIN SOD (PORCINE) 5,000 UNIT/ML 1 ML SYRINGE SUBCUT SCH (05:47)
[2019-03-09] MEDS: METHYLPREDNISOLONE INJ 40 MG/1 ML SDV IV SCH (05:49)
[2019-03-09] MEDS: LEVOTHYROXINE SODIUM 0.075 MG TABLET PO SCH (05:51)
[2019-03-09] MEDS: THYROID (PORK) 60 MG TABLET PO SCH (09:41)
[2019-03-09] MEDS: FLUOXETINE HCL 20 MG CAPSULE PO SCH (09:42)
[2019-03-09] MEDS: OXYCODONE HCL IR 5 MG TABLET PO PRN (09:42)
[2019-03-09] MEDS: DOCUSATE SODIUM 100 MG CAPSULE PO SCH (09:42)
[2019-03-09] MEDS: ANASTROZOLE 1 MG TABLET PO SCH (09:43)
[2019-03-09] MEDS: FLUTICASONE NASAL SPRAY 50 MCG/SPRY 120 SPRAY/16 GM NASL SCH (09:44)
[2019-03-09] MEDS: LIDOCAINE 5% (700 MG) TRANSDERMAL ADH..PATCH TP SCH (09:46)
[2019-03-09] MEDS ORDERED: LIDOCAINE 5% (700 MG) TRANSDERMAL ADH..PATCH TP SCH (10:00)
[2019-03-09 10:30] VITALS: BP 92/62
--- NOTE | 2019-03-09 14:47 | PDOC DISCHARGE SUMMARY ---
General - Admit/Disc Date/PCP Admission Date/Primary Care Provider: 03/06/19 21:45 ZULEMA DE LEÓN MD Discharge Date: 03/09/19 - Discharge Diagnosis (1) Acute respiratory failure with hypoxia Is this a current diagnosis for this admission?: Yes (2) Pleural effusion Is this a current diagnosis for this admission?: Yes (3) COPD (chronic obstructive pulmonary disease) with emphysema Is this a current diagnosis for this admission?: Yes (4) Lung metastases Is this a current diagnosis for this admission?: Yes (5) Breast cancer Is this a current diagnosis for this admission?: Yes (6) Hypothyroidism Is this a current diagnosis for this admission?: Yes - Additional Information Discharge Diet: As Tolerated Discharge Activity: Activity As Tolerated, Balance Activity w/Rest Prescriptions: Fluticasone/Salmeterol [Advair HFA 115-21 mcg Inhaler] 1 puff IH Q12 #1 mdi Levothyroxine Sodium [Synthroid 0.075 mg Tablet] 0.075 mg PO Q6AM #30 tablet Prednisone [Deltasone 10 mg Tablet] 10 mg PO BID 5 Days #10 tablet Home Medications: Ibuprofen [Motrin 600 mg Tablet] 600 mg PO Q4HP PRN 12/20/18 Oxycodone HCl [Oxycodone HCl 10 MG Tablet] 20 mg PO Q4HP PRN 12/20/18 Albuterol Sulfate [Ventolin 0.083% Neb 2.5 mg/3 mL Ampul] 3 ml IH RTQ4HP PRN 01/06/19 Ondansetron HCl [Zofran 8 mg Tablet] 8 mg PO Q6HP PRN 01/06/19 Thyroid 2 gr PO DAILY 01/06/19 Albuterol Sulfate [Proair HFA Inhalation Aerosol 8.5 gm MDI] 1 puff IH Q4HP PRN 03/07/19 Anastrozole [Arimidex 1 mg Tablet] 1 mg PO DAILY 03/07/19 Diphenhydramine HCl [Benadryl] 50 mg PO Q4HP PRN 03/07/19 Fluoxetine HCl [Prozac] 20 mg PO DAILY 03/07/19 Fluticasone Propionate [Flonase Nasal [place] 50 Mcg/[place] 16 gm] 1 spray NASL Q12 03/07/19 Lorazepam [Ativan 0.5 mg Tablet] 0.5 mg PO Q4HP PRN 03/07/19 Oxycodone HCl [Oxycontin Sr 40 mg Tablet] 80 mg PO Q12 03/07/19 Oxymetazoline HCl [Nasal [place]] 1 spray NS DAILYP PRN 03/07/19 Phenylephrine HCl [Nasal Decongestant PE] 10 mg PO DAILYP PRN 03/07/19 Polyethylene Glycol 3350 [Miralax Powder 17 gm/Packet] 1 packet PO BID 03/07/19 Potassium Chloride [Klor-Con M20] 20 meq PO BID 03/07/19 Promethazine HCl [Phenergan 25 mg Tablet] 25 mg PO Q8HP PRN 03/07/19 Sennosides/Docusate Sodium [Senna-S Tablet] 1 each PO DAILYP PRN 03/07/19 Simethicone [Gas Relief] 125 mg PO TID 03/07/19 Fluticasone/Salmeterol [Advair HFA 115-21 mcg Inhaler] 1 puff IH Q12 #1 mdi 03/09/19 Ipratropium/Albuterol Sulfate [Duoneb 3 ml Ampul] 3 ml NEB RTQ6 vial.neb 03/09/19 Levothyroxine Sodium [Synthroid 0.075 mg Tablet] 0.075 mg PO Q6AM #30 tablet 03/09/19 Lidocaine [Lidoderm 5% (700 mg) Transdermal Patch] 1 patch TP DAILY PRN #3 adh..patch 03/09/19 Prednisone [Deltasone 10 mg Tablet] 10 mg PO BID 5 Days #10 tablet 03/09/19 History of Present Illness History of Present Illness: This is a 48 year old female with hypothyroidism, COPD, Stage 4 breast CA with lung metastases on home O2, was on Gemzar/Abraxane and neulasta who presented with increasing SOB. Hospital Course Hospital Course: Chest CTA shows bilateral pleural effusions and right lower lobe collapse. Patient was placed on BIPAP. She was also empirically started on Rocephin. The right lower collapse is a chronic finding. She does have prior pleural effusions and thoracentesis which are very likely malignant effusions. 03/07: Discussed with patient and and both verbalized she is a FULL CODE and does not want to consider hospice at this time. She underwent left sided thoracentesis and had 700 cc drained. She did have significant improvement in her SOB and returned to her baseline on day of discharge. She did develop significant wheezing and was started on solumedrol to which she responded well. Rediscussed goals of care on day of discharge with patient and . She is very tearful but appears to be more receptive now on the idea of switching her code status and considering hospice over the next few weeks. She says she will discuss this further with her . She will follow-up with Dr. De León next week. Physical Exam Vital Signs: Temp Pulse Resp BP Pulse Ox 98.5 F 103 H 16 92/62 L 97 03/09/19 10:27 03/09/19 10:27 03/09/19 10:27 03/09/19 10:27 03/09/19 10:27 Intake & Output 03/08/19 03/09/19 03/10/19 06:59 06:59 06:59 Intake Total 1639 996 237 Output Total 450 975 550 Balance 1189 21 -313 Weight 104 lb 0.931 oz 106 lb 4.205 oz General appearance: PRESENT: no acute distress, well-developed, well-nourished Head exam: PRESENT: atraumatic, normocephalic Eye exam: PRESENT: conjunctiva pink, EOMI, PERRLA. ABSENT: scleral icterus Ear exam: PRESENT: normal external ear exam Mouth exam: PRESENT: moist, tongue midline Neck exam: ABSENT: carotid bruit, JVD, lymphadenopathy, thyromegaly Respiratory exam: PRESENT: rhonchi. ABSENT: rales, wheezes Cardiovascular exam: PRESENT: RRR. ABSENT: diastolic murmur, rubs, systolic murmur GI/Abdominal exam: PRESENT: normal bowel sounds, soft. ABSENT: distended, guarding, mass, organolmegaly, rebound, tenderness Rectal exam: PRESENT: deferred Neurological exam: PRESENT: alert, awake, oriented to person, oriented to place, oriented to time, oriented to situation, CN II-XII grossly intact. ABSENT: motor sensory deficit Results Laboratory Results: 03/08/19 21:02 03/08/19 21:02 03/07/19 03/07/19 03/08/19 14:40 14:40 18:53 WBC RBC Hgb Hct MCV MCH MCHC RDW Plt Count Seg Neutrophils % Lymphocytes % Monocytes % Eosinophils % Basophils % Absolute Neutrophils Absolute Lymphocytes Absolute Monocytes Absolute Eosinophils Absolute Basophils Carbonic Acid 1.41 H HCO3/H2CO3 Ratio 23:1 ABG pH 7.47 H ABG pCO2 47.0 H ABG pO2 100.3 H ABG HCO3 33.3 H ABG O2 Saturation 97.8 ABG Base Excess 8.5 FiO2 3 Sodium Potassium Chloride Carbon Dioxide Anion Gap BUN Creatinine Est GFR ( Amer) Est GFR (Non-Af Amer) Glucose Calcium Total Bilirubin AST ALT Alkaline Phosphatase Total Protein Albumin Fluid Total Protein 0.7 Fluid LDH 301 03/08/19 03/08/19 21:02 21:02 WBC 46.9 H* RBC 3.47 L Hgb 11.2 L Hct 33.9 L MCV 98 H D MCH 32.2 MCHC 32.9 RDW 22.3 H Plt Count 549 H Seg Neutrophils % Not Reportable Lymphocytes % Not Reportable Monocytes % Not Reportable Eosinophils % Not Reportable Basophils % Not Reportable Absolute Neutrophils Not Reportable Absolute Lymphocytes Not Reportable Absolute Monocytes Not Reportable Absolute Eosinophils Not Reportable Absolute Basophils Not Reportable Carbonic Acid HCO3/H2CO3 Ratio ABG pH ABG pCO2 ABG pO2 ABG HCO3 ABG O2 Saturation ABG Base Excess FiO2 Sodium 139.0 Potassium 4.4 Chloride 96 L Carbon Dioxide 31 H Anion Gap 12 BUN 11 Creatinine 0.57 Est GFR ( Amer) > 60 Est GFR (Non-Af Amer) > 60 Glucose 145 H Calcium 8.6 Total Bilirubin 0.3 AST 42 H ALT 25 Alkaline Phosphatase 220 H Total Protein 7.2 Albumin 3.8 Fluid Total Protein Fluid LDH 03/06/19 03/06/19 03/06/19 16:06 17:00 17:00 Creatine Kinase 125 CK-MB (CK-2) 4.00 Troponin I 0.272 NT-Pro-B Natriuret Pep 4260 H 03/06/19 03/07/19 03/07/19 20:50 03:50 08:45 Creatine Kinase CK-MB (CK-2) Troponin I 0.544 0.329 0.254 NT-Pro-B Natriuret Pep 03/07/19 15:52 Creatine Kinase CK-MB (CK-2) Troponin I 0.218 NT-Pro-B Natriuret Pep Impressions: Chest/Abdomen CTA 03/06/19 19:10 IMPRESSION: 1. No acute pulmonary embolism. 2. Unchanged bilateral pleural effusions with right lower lobe collapse. Head CT 03/07/19 00:00 IMPRESSION: No acute intracranial abnormality. TECHNICAL DOCUMENTATION: Quality ID # 436: Final reports with documentation of one or more dose reduction techniques (e.g., Automated exposure control, adjustment of the mA and/or kV according to patient size, use of iterative reconstruction technique) copyright 2010 [employer]- All Rights Reserved Thoracentesis Ultrasound 03/07/19 00:00 IMPRESSION: SUCCESSFUL LEFT THORACENTESIS USING ULTRASOUND GUIDANCE. Chest X-Ray 03/08/19 00:00 IMPRESSION: Stable appearance of the chest compared to 03/07/2019. No pneumothorax. Qualifiers - * PATIENT BEING DISCHARGED WITH ANY OF THE FOLLOWING DIAGNOSIS: No Acute Heart Failure Is this a Heart Failure Patient?: No
--- NOTE | 2019-03-10 10:21 | XCELERA REPORT ---
[address] [address] Transthoracic Echocardiogram Report Name: VIJAYA HUTTON Age: 48 yrs Gender: Female : 1970 Patient Status: Inpatient Patient Location: [address] [place] [address] Study Date: 03/07/2019 03:25 PM Height: 64 in Weight: 105 lb BSA: 1.5 m2 Procedure: A two-dimensional transthoracic echocardiogram with color flow and Doppler was performed. The study was technically limited with all images being suboptimal in quality. Reason For Study: Pt starting Chemo History: CHF. Pre-chemo. Ordering Physician: ZULEMA RIOJAS Performed By: Shelia Muro Interpretation Summary The study was technically limited with all images being suboptimal in quality. The left ventricle is normal in size. There is normal left ventricular wall thickness. No True apical 2 chamber views obtained.Hence cannot comment on the apical anterior , the basal anterior, the basal inferior and apical inferior ly..The IV septum is hypokinetic.The mid anterior , the mid inferior and the rest of the LV ly are moderately hypokinetic.LVEF is mild to moderately ly reduced at 45%.to 50%.Recommend MUGA for RVEF and LVEF. Doppler measurements suggest normal left ventricular diastolic function There is no thrombus. No ASD ,VSD or PFO. The right ventricle is normal in size and function. The left atrial size is normal. There is no evidence of mitral valve prolapse. There is no vegetation seen on the mitral valve. There is no mitral valve stenosis. There is a trace amount of mitral regurgitation There is no aortic valvular vegetation. There is no aortic valve stenosis There is no LVOT obstruction. There is a mild amount of aortic regurgitation There is no tricuspid stenosis. There is a mild amount of tricuspid regurgitation There is mild to moderate pulmonary hypertension by echo RVSP is 45to 50 mm of Hg , with RA mean of 5 to 10. There is no pulmonic valvular stenosis. There is no pulmonic valvular regurgitation. There is no pericardial effusion. MMode/2D Measurements & Calculations RVDd: 2.0 cm LVIDd: 4.4 cm FS: 31.1 % Ao root diam: 3.1 cm IVSd: 1.1 cm LVIDs: 3.1 cm EDV(Teich): 89.7 ml Ao root area: 7.6 cm2 LVPWd: 1.1 cm ESV(Teich): 36.8 ml EF(Teich): 59.0 % Doppler Measurements & Calculations MV E max tevin: MV dec slope: Ao V2 max: AI max tevin: 46.4 cm/sec 337.5 cm/sec2 94.8 cm/sec 475.9 cm/sec MV A max tevin: MV dec time: Ao max PG: AI max P.6 mmHg 28.5 cm/sec 0.14 sec 3.6 mmHg AI dec slope: MV E/A: 1.6 474.7 cm/sec2 AI P1/2t: 293.6 msec LV V1 max PG: PA V2 max: TR max tevin: 3.0 mmHg 91.3 cm/sec 315.7 cm/sec LV V1 max: PA max P.3 mmHg TR max P.0 cm/sec 39.9 mmHg Left Ventricle The left ventricle is normal in size. There is normal left ventricular wall thickness. No True apical 2 chamber views obtained.Hence cannot comment on the apical anterior , the basal anterior, the basal inferior and apical inferior ly..The IV septum is hypokinetic.The mid anterior , the mid inferior and the rest of the LV ly are moderately hypokinetic.LVEF is mild to moderately ly reduced at 45%.to 50%.Recommend MUGA for RVEF and LVEF. Doppler measurements suggest normal left ventricular diastolic function. There is no thrombus. No ASD ,VSD or PFO. Right Ventricle The right ventricle is normal in size and function. Atria The right atrium is normal. The left atrial size is normal. Mitral Valve There is no evidence of mitral valve prolapse. There is no vegetation seen on the mitral valve. There is no mitral valve stenosis. There is a trace amount of mitral regurgitation. Aortic Valve There is no aortic valvular vegetation. There is no aortic valve stenosis. There is no LVOT obstruction. There is a mild amount of aortic regurgitation. Tricuspid Valve There is no tricuspid stenosis. There is a mild amount of tricuspid regurgitation. There is mild to moderate pulmonary hypertension by echo. RVSP is 45to 50 mm of Hg , with RA mean of 5 to 10. Pulmonic Valve There is no pulmonic valvular stenosis. There is no pulmonic valvular regurgitation. Effusions There is no pericardial effusion. : ZULEMA RIOJAS > Tabitha Kahn
[2019-03-10 13:56] LABS: PATH REVIEW PATHOLOGIST REVIEWED
--- NOTE | 2019-03-20 05:15 | PDOC H&P ---
History of Present Illness Admission Date/PCP: 03/06/19 21:45 ZULEMA RIOJAS MD Patient complains of: Shortness of breath History of Present Illness: VIJAYA HUTTON is a 48 year old female with a past medical history of chronic left maxillary sinusitis, COPD, tobacco dependence and stage IV metastatic breast cancer with mets throughout the lungs with recurrent parapneumonic effusion. She presents with 5 days of worsening shortness of breath, in the emergency department she is in respiratory distress with use of accessory muscles requiring BiPAP with a 60% FiO2 for hypoxia. Imaging reveals persistent parapneumonic effusion. CTA chest is negative for PE. reveals recent conversations with oncology recommending hospice which is under consideration. She is referred to the hospitalist for admission. Past Medical History Cardiac Medical History: Denies: Coronary Artery Disease, Myocardial Infarction, Hypertension Pulmonary Medical History: Reports: Bronchitis - X1, Chronic Obstructive Pulmonary Disease (COPD), Pneumonia Denies: Asthma Neurological Medical History: Denies: Seizures Endocrine Medical History: Reports: Hypothyroidism Malignancy Medical History: Reports: Bone Cancer, Breast Cancer, Lung Cancer Musculoskeltal Medical History: Denies: Arthritis Psychiatric Medical History: Denies: Depression Hematology: Denies: Anemia Past Surgical History Past Surgical History: Reports: Section, Mastectomy Social History Information Source: Patient, Emergency Med Personnel, [facility] Lives with: Spouse/Significant other Smoking Status: Current Every Day Smoker Cigarettes Packs Per Day: 0.5 Number of Years Smokin Frequency of Alcohol Use: None Hx Recreational Drug Use: No Drugs: None Hx Prescription Drug Abuse: No - Advance Directive Resuscitation Status: Full Code Family History Family History: COPD, Hypertension, Malignancy Parental Family History Reviewed: Yes Children Family History Reviewed: Yes Sibling(s) Family History Reviewed.: Yes Medication/Allergy Home Medications: Ibuprofen [Motrin 600 mg Tablet] 600 mg PO Q4HP PRN 12/20/18 Oxycodone HCl [Oxycodone HCl 10 MG Tablet] 20 mg PO Q4HP PRN 12/20/18 Albuterol Sulfate [Ventolin 0.083% Neb 2.5 mg/3 mL Ampul] 3 ml IH RTQ4HP PRN 01/06/19 Ondansetron HCl [Zofran 8 mg Tablet] 8 mg PO Q6HP PRN 01/06/19 Thyroid 2 gr PO DAILY 01/06/19 Albuterol Sulfate [Proair HFA Inhalation Aerosol 8.5 gm MDI] 1 puff IH Q4HP PRN 03/07/19 Anastrozole [Arimidex 1 mg Tablet] 1 mg PO DAILY 03/07/19 Diphenhydramine HCl [Benadryl] 50 mg PO Q4HP PRN 03/07/19 Fluoxetine HCl [Prozac] 20 mg PO DAILY 03/07/19 Fluticasone Propionate [Flonase Nasal [place] 50 Mcg/[place] 16 gm] 1 spray NASL Q12 03/07/19 Lorazepam [Ativan 0.5 mg Tablet] 0.5 mg PO Q4HP PRN 03/07/19 Oxycodone HCl [Oxycontin Sr 40 mg Tablet] 80 mg PO Q12 03/07/19 Oxymetazoline HCl [Nasal [place]] 1 spray NS DAILYP PRN 03/07/19 Phenylephrine HCl [Nasal Decongestant PE] 10 mg PO DAILYP PRN 03/07/19 Polyethylene Glycol 3350 [Miralax Powder 17 gm/Packet] 1 packet PO BID 03/07/19 Potassium Chloride [Klor-Con M20] 20 meq PO BID 03/07/19 Promethazine HCl [Phenergan 25 mg Tablet] 25 mg PO Q8HP PRN 03/07/19 Sennosides/Docusate Sodium [Senna-S Tablet] 1 each PO DAILYP PRN 03/07/19 Simethicone [Gas Relief] 125 mg PO TID 03/07/19 Fluticasone/Salmeterol [Advair HFA 115-21 mcg Inhaler] 1 puff IH Q12 #1 mdi 03/09/19 Ipratropium/Albuterol Sulfate [Duoneb 3 ml Ampul] 3 ml NEB RTQ6 vial.neb 03/09/19 Levothyroxine Sodium [Synthroid 0.075 mg Tablet] 0.075 mg PO Q6AM #30 tablet 03/09/19 Lidocaine [Lidoderm 5% (700 mg) Transdermal Patch] 1 patch TP DAILY PRN #3 adh..patch 03/09/19 Prednisone [Deltasone 10 mg Tablet] 10 mg PO BID 5 Days #10 tablet 03/09/19 Allergies/Adverse Reactions: No Known Allergies Allergy (Verified 12/23/18 08:12) Review of Systems ROS unobtainable: Due to mental status - Respiratory distress Physical Exam Vital Signs: Temp Pulse Resp BP Pulse Ox 98.5 F 103 H 16 92/62 L 97 03/09/19 10:27 03/09/19 10:27 03/09/19 10:27 03/09/19 10:27 03/09/19 10:27 General appearance: PRESENT: cooperative, disheveled, severe distress, other - Cachexia with temporal wasting Head exam: PRESENT: atraumatic, normocephalic Eye exam: PRESENT: conjunctiva pink, EOMI, PERRLA. ABSENT: scleral icterus Ear exam: PRESENT: normal external ear exam Mouth exam: PRESENT: moist, tongue midline Neck exam: ABSENT: carotid bruit, JVD, lymphadenopathy, thyromegaly Respiratory exam: PRESENT: accessory muscle use, crackles, prolonged expiratory phas, retraction, symmetrical, tachypnea Cardiovascular exam: PRESENT: gallop, +S1, +S2, tachycardia Pulses: PRESENT: normal dorsalis pedis pul Vascular exam: PRESENT: normal capillary refill GI/Abdominal exam: PRESENT: normal bowel sounds, soft. ABSENT: distended, guarding, mass, organolmegaly, rebound, tenderness Rectal exam: PRESENT: deferred Extremities exam: PRESENT: full ROM. ABSENT: calf tenderness, clubbing, pedal edema Neurological exam: PRESENT: alert, awake, oriented to person, oriented to place, oriented to time, oriented to situation, CN II-XII grossly intact. ABSENT: motor sensory deficit Psychiatric exam: PRESENT: anxious Skin exam: PRESENT: dry, intact, warm. ABSENT: cyanosis, rash Results Laboratory Results: 03/08/19 21:02 03/08/19 21:02 03/06/19 03/06/19 03/06/19 16:06 17:00 17:00 Creatine Kinase 125 CK-MB (CK-2) 4.00 Troponin I 0.272 NT-Pro-B Natriuret Pep 4260 H 03/06/19 03/07/19 03/07/19 20:50 03:50 08:45 Creatine Kinase CK-MB (CK-2) Troponin I 0.544 0.329 0.254 NT-Pro-B Natriuret Pep 03/07/19 15:52 Creatine Kinase CK-MB (CK-2) Troponin I 0.218 NT-Pro-B Natriuret Pep Impressions: Chest/Abdomen CTA 03/06/19 19:10 IMPRESSION: 1. No acute pulmonary embolism. 2. Unchanged bilateral pleural effusions with right lower lobe collapse. Head CT 03/07/19 00:00 IMPRESSION: No acute intracranial abnormality. TECHNICAL DOCUMENTATION: Quality ID # [id number]: Final reports with documentation of one or more dose reduction techniques (e.g., Automated exposure control, adjustment of the mA and/or kV according to patient size, use of iterative reconstruction technique) copyright 2011 [email or web address]- All Rights Reserved Thoracentesis Ultrasound 03/07/19 00:00 IMPRESSION: SUCCESSFUL LEFT THORACENTESIS USING ULTRASOUND GUIDANCE. Chest X-Ray 03/08/19 00:00 IMPRESSION: Stable appearance of the chest compared to 03/07/2019. No pneumothorax. Assessment and Plan - Diagnosis (1) Acute respiratory failure with hypoxia Is this a current diagnosis for this admission?: Yes Plan: Complicated by terminal lung cancer, COPD, tobacco Dependence and recurrent pleural effusions. IMCU admission, BiPAP support, supplemental oxygen, albuterol and Atrovent, Flonase. Consider pulmonology consult for thoracentesis. (2) Breast cancer Qualifiers: Breast location: unspecified site of breast Estrogen receptor status: unspecified Patient sex: female Laterality: unspecified laterality Qualified Code(s): C50.919 - Malignant neoplasm of unspecified site of unspecified female breast Is this a current diagnosis for this admission?: Yes Plan: Hospice consult, oncology consult (3) COPD (chronic obstructive pulmonary disease) with emphysema Qualifiers: Emphysema type: unspecified Qualified Code(s): J43.9 - Emphysema, unspecified Is this a current diagnosis for this admission?: Yes Plan: Albuterol, Atrovent, Flonase, steroids, incentive spirometry flutter valve. - Time Time Spent with patient: 35 or more minutes - Inpatient Certification I certify that my determination is in accordance with my understanding of Medic are's requirements for reasonable and necessary INPATIENT services [42 CFR 412.3e].: Yes Medical Necessity: Need Close Monitoring Due to Risk of Patient Decompensation
== END 2019-03-09 11:06 | disposition home or self-care (01) | DRG 189 ==
LOC: ER 15:59 → EH 21:45 → 3S 03-07 01:20
PROVIDERS: ADMIT Internal Medicine; ATTEND Internal Medicine
PROC: 5A09457 Assistance with Respiratory Ventilation, 24-96 Consecutive Hours, Continuous Positive Airway Pressure (ICD-10-PCS; 2019-03-06)
PROC: 0W9B3ZZ Drainage of Left Pleural Cavity, Percutaneous Approach (ICD-10-PCS; principal; 2019-03-07)
DX: J96.01 Acute respiratory failure with hypoxia (principal); J91.0 Malignant pleural effusion; C78.02 Secondary malignant neoplasm of left lung; C78.7 Secondary malignant neoplasm of liver and intrahepatic bile duct; J98.19 Other pulmonary collapse; C78.01 Secondary malignant neoplasm of right lung; C50.919 Malignant neoplasm of unspecified site of unspecified female breast; J43.9 Emphysema, unspecified; F41.9 Anxiety disorder, unspecified; J32.0 Chronic maxillary sinusitis; E03.9 Hypothyroidism, unspecified; F17.210 Nicotine dependence, cigarettes, uncomplicated; Z90.12 Acquired absence of left breast and nipple; Z99.81 Dependence on supplemental oxygen; Z79.899 Other long term (current) drug therapy; Z79.51 Long term (current) use of inhaled steroids
CPT/HCPCS: 32555; 36415; 36591; 36600; 51702; 70450; 71045; 71046; 71275; 80053; 82550; 82553; 82803; 83615; 83735; 83880; 84100; 84157; 84439; 84443; 84481; 84484; 85025; 85610; 87070; 87075; 87205; 89050; 93005; 93010; 93306; 94660; 96374; 96375; 99291; J0696; J1642; J1644; J1940; J2250; J2920; J3490; J7060; J7620

== ENCOUNTER → 2019-03-21 | Day surgery (SDC) | payer OTHER ==
--- NOTE | 2019-03-21 09:07 | RADIOLOGY REPORT (SQ) ---
EXAM DESCRIPTION: CHEST 2 VIEWS COMPLETED DATE/TIME: 03/21/2019 8:32 am REASON FOR STUDY: SOB COMPARISON: Chest films 01/05/2019, 03/03/2019, 03/06/2019, 03/07/2019, 03/08/2019 EXAM PARAMETERS: NUMBER OF VIEWS: two views TECHNIQUE: Digital Frontal and Lateral radiographic views of the chest acquired. RADIATION DOSE: NA LIMITATIONS: none FINDINGS: LUNGS AND PLEURA: Chronic appearing right pleuroparenchymal changes at the lower hemithora x. On the left side, there is trace fluid in the lateral and posterior costophrenic sulci. This is not enough fluid to effectively perform thoracentesis. No left basilar airspace disease. No pneumothorax. No acute right lung infiltrates. MEDIASTINUM AND HILAR STRUCTURES: No masses or contour abnormalities. HEART AND VASCULAR STRUCTURES: Heart normal size. No evidence for failure. BONES: No acute findings. HARDWARE: Right permanent central line tip superior vena cava. Old left mastectomy with left axillar y surgical clips. OTHER: No other significant finding. IMPRESSION: Trace left pleural fluid. No thoracentesis was performed today. Chronic pleural scarring at the right lower hemithorax unchanged TECHNICAL DOCUMENTATION: JOB ID: [id number] [employer]- All Rights Reserved Reading location - IP/workstation name: [email or web address]
== END ==
LOC: EDSTATUS 03-13 09:30 → RAD 07:39
PROVIDERS: ATTEND Internal Medicine Hematology & Oncology
DX: J91.8 Pleural effusion in other conditions classified elsewhere (principal); Z53.9 Procedure and treatment not carried out, unspecified reason
CPT/HCPCS: 71046